=== PATIENT | female | born 1945 | race Caucasian/White ===

== ENCOUNTER 2019-01-01 08:58 | Inpatient (IN) | payer MEDICARE, BC ==
[2019-01-01 09:33] LABS: #Basophils 0.1 thou/uL (0.0-0.2); #Eosinphils 0.1 thou/uL (0.0-0.7); #Lymphocytes 1.4 thou/uL (1.20-3.40); #Monocytes 0.5 thou/uL (0.11-0.59); #Neutrophils 5.1 thou/uL (1.40-6.50); %Basophils 0.8 % (0.0-1.0); %Eosinophils 1.4 % (0.0-10.0); %Lymphocytes 18.9 % (21.0-51.0); %Monocytes 7.3 % (0.0-10.0); %Neutrophils 71.6 % (42.0-75.0); Mean Corpuscular Hemoglobin 30.6 pg (27.0-31.0); Mean Corpuscular Volume 92.7 fL (78.0-98.0); Mean Platelet Volume 9.4 fL (7.4-10.4); Platelet Count 240 thou/uL (130-400); RBC Distribution Width 12.8 % (11.5-14.5); Red Blood Cell (RBC) Count 4.25 mill/uL (4.20-5.40); White Blood Cell (WBC) Count 7.2 thou/uL (4.8-10.8)
[2019-01-01 09:55] LABS: ALT (SGPT) 56 U/L (8-55); AST (SGOT) 41 U/L (5-34); Albumin 4.3 g/dL (3.4-4.8); Alkaline Phosphatase 128 U/L (40-150); Anion Gap 16 mmol/L (10-20); BUN (Urea Nitrogen) 21 mg/dL (9.8-20.1); CK (CPK) 205 U/L (29-168); Calc. Creatinine Clearance 0 mL/min (70-130); Calcium 9.4 mg/dL (7.8-10.44); Carbon Dioxide 22 mmol/L (23-31); Chloride 103 mmol/L (98-107); Estimated GFR-MDRD 52; Globulin 2.9 g/dL (2.4-3.5); Glucose 159 mg/dL (83-110); Potassium 3.7 mmol/L (3.5-5.1); Protein, Total 7.2 g/dL (6.0-8.3); Sodium 137 mmol/L (136-145)
[2019-01-01] MEDS ORDERED: cefTRIAXone\\ROCEPHIN 1 GM VIAL ONE (10:07)
[2019-01-01] MEDS ORDERED: Diltiazem 125 MG in Sodium Chloride 0.9% 100 ML IVPB SCH (10:15)
--- NOTE | 2019-01-01 10:44 | RAD ---
FRONTAL VIEW CHEST: CLINICAL HISTORY: Dyspnea. Short of breath. New onset findings. FINDINGS: Bibasilar opacities are present. There is enlargement of the cardiac silhouette and pulmonary vascul ature. No pneumothorax is seen. IMPRESSION: 1. Evidence of bilateral pleural fluid with adjacent atelectasis and/or pneumonia. 2. Edema with findings of congestive heart failure. Recommend followup to resolution. POS: [facility]
[2019-01-01 11:20] LABS: Bilirubin Negative (Negative); Blood, Urine Negative (Negative); Clarity CLEAR (Clear); Glucose, Urine (Dipstick) Negative (Negative); Leukocyte Negative (Negative); Nitrite Negative (Negative); Protein, Urine (Dipstick) Negative (Neg-Trace); Specific Gravity, Urine 1.006 (1.002-1.036); Urobilinogen 0.2 mg/dL (0.2-1.0); pH, Urine 7.5 (5.0-9.0)
[2019-01-01] MEDS ORDERED: Ondansetron ODT 4 MG TAB SL PRN (12:54)
[2019-01-01] MEDS ORDERED: Ondansetron PF 4 MG/2 ML Vial IVP PRN (12:54)
[2019-01-01] MEDS ORDERED: Acetaminophen 325 MG TAB PO PRN (13:44)
[2019-01-01] MEDS: Furosemide 20 MG/2 ML VIAL SLOW IVP SCH (14:51)
[2019-01-01 14:55] VITALS: BMI 27.2
--- NOTE | 2019-01-01 17:27 | HP ---
PRIMARY CARE PROVIDER: Dr. Talia Pderoza. CHIEF COMPLAINT: Palpitations. HISTORY OF PRESENT ILLNESS: Ms. Tellez is a pleasant 73-year-old lady, who was seen at [facility] on January 01, 2019. She reports that she felt her heart racing about 5 to 7 days ago. She reports that it is intermittent, no known aggravating or relieving factors. She reports that she has a history of PVCs, but otherwise no cardiac history. She reports that she had aching sensation in her chest yesterday. She also reports orthopnea last night. Over the last 2 to 3 days, she had a sensation of fluid in her ear, initially in the left ear, subsequently in the right ear. She denies any fevers or chills. She denies any nausea or vomiting. REVIEW OF SYSTEMS: All other systems reviewed and found to be negative. PAST MEDICAL HISTORY: Hypothyroidism and hypertension. PAST SURGICAL HISTORY: None. SOCIAL HISTORY: The patient reports occasional alcohol use. She denies tobacco use or recreational drug use. FAMILY HISTORY: Coronary artery disease in her mother and atrial fibrillation in her sister. ALLERGIES: PENICILLIN AND TETRACYCLINE. CURRENT MEDICATIONS: 1. Levoxyl 112 mcg daily. 2. Avapro 300 mg daily. CODE STATUS: I discussed her code status. She is full code. PHYSICAL EXAMINATION: GENERAL: On examination, Ms. Tellez is awake and alert, not in acute distress. VITAL SIGNS: Blood pressure is 120/95, pulse 110, respiratory rate 18, and oxygen saturation 92% on room air. She is afebrile. EYES: No scleral icterus. No conjunctival pallor. ENT: Moist mucosal membranes. No oropharyngeal erythema or exudates. NECK: Supple and nontender. Trachea is midline. She has jugular venous distention. RESPIRATORY: Accessory muscles of breathing are not active. Chest wall movements are symmetric bilaterally. Lung examination reveals bibasilar crackles. CARDIOVASCULAR: S1 and S2 are heard, tachycardic and irregular. Peripheral pulses palpable. No carotid bruit. No pericardial rub. ABDOMEN: Soft and nontender. Bowel sounds heard. NEUROLOGIC: Cranial nerves 2 through 12 intact. Deep tendon reflexes 2+. MUSCULOSKELETAL: Power is 5/5 in all 4 extremities. No lower extremity edema. SKIN: No rashes or subcutaneous nodules. LYMPHATIC: No cervical lymphadenopathy. PSYCHIATRIC: Normal mood and normal affect. The patient is oriented to person, place, and time. LABORATORY DATA: Ms. Tellez labs and investigations were reviewed. I reviewed her electrocardiogram, which shows atrial fibrillation with rapid ventricular response, no ST changes to suggest an acute coronary syndrome. I also reviewed her chest x-ray, which shows pleural effusions with adjacent atelectasis and pulmonary vasculature enlargement. Laboratory investigation show an unremarkable CBC, normal sodium, normal potassium, normal creatinine, elevated blood urea nitrogen of 21, normal lactic acid, elevated AST of 41, elevated ALT of 56, elevated CK of 205, elevated BNP of 826.2, and normal troponin I. TSH is normal. Urinalysis is unremarkable. ASSESSMENT AND PLAN: Ms. Tellez is a pleasant 73-year-old lady, who was seen at [facility] on January 10, 2019. Her problem list includes: 1. Atrial fibrillation with rapid ventricular response: Ms. Tellez is presenting with atrial fibrillation with rapid ventricular response. TSH is normal. She has been started on a Cardizem drip. She will be admitted to the hospital. 2D echocardiogram and Cardiology Service consultation are being requested for new onset atrial fibrillation with rapid ventricular response. 2. Congestive heart failure: She appears to have new onset congestive heart failure. We will start her on furosemide. We will check 2D echocardiogram. Further management depending on outcome of 2D echocardiogram. 3. Hypertension: We will resume home medications, monitor vital signs and titrate antihypertensives as needed. 4. Hypothyroidism: TSH is normal, continue levothyroxine. Please note that there was some concern for infection on chest x-ray report. However, the patient is afebrile. She denies any cough or sputum production. She has normal white count. She did receive a dose of ceftriaxone in the emergency room. I am holding off on further antibiotics until it is clear that there is in fact an underlying infection. Many thanks for allowing me to participate in your patient's care. Please feel free to contact me with any questions or concerns. LEVEL OF RISK: High. LEVEL OF COMPLEXITY: High. Job ID: [id number]
[2019-01-01] MEDS: Diltiazem 125 MG in Sodium Chloride 0.9% 100 ML IVPB SCH (19:02)
[2019-01-02] MEDS: Furosemide 20 MG/2 ML VIAL SLOW IVP SCH ×2 (05:16→15:32)
[2019-01-02 05:19] LABS: #Basophils 0.1 thou/uL (0.0-0.2); #Eosinphils 0.2 thou/uL (0.0-0.7); #Monocytes 0.7 thou/uL (0.11-0.59); %Basophils 1.1 % (0.0-1.0); %Eosinophils 3.6 % (0.0-10.0); %Lymphocytes 33.2 % (21.0-51.0); %Monocytes 11.3 % (0.0-10.0); %Neutrophils 50.9 % (42.0-75.0); Hemoglobin 12.1 g/dL (12.0-16.0); Mean Corpuscular HGB CONC 33.1 g/dL (32.0-36.0); Mean Corpuscular Hemoglobin 30.7 pg (27.0-31.0); Mean Corpuscular Volume 92.6 fL (78.0-98.0); Mean Platelet Volume 9.2 fL (7.4-10.4); Platelet Count 223 thou/uL (130-400); RBC Distribution Width 12.6 % (11.5-14.5); Red Blood Cell (RBC) Count 3.96 mill/uL (4.20-5.40)
[2019-01-02] MEDS: Diltiazem 125 MG in Sodium Chloride 0.9% 100 ML IVPB SCH ×2 (05:19→13:36)
[2019-01-02 05:34] LABS: Anion Gap 14 mmol/L (10-20); BUN (Urea Nitrogen) 19 mg/dL (9.8-20.1); Calc. Creatinine Clearance 78 mL/min (70-130); Calcium 8.8 mg/dL (7.8-10.44); Carbon Dioxide 22 mmol/L (23-31); Chloride 106 mmol/L (98-107); Estimated GFR-MDRD 60; Glucose 103 mg/dL (83-110); Potassium 3.6 mmol/L (3.5-5.1); Sodium 138 mmol/L (136-145)
[2019-01-02] MEDS ORDERED: Levothyroxine Sodium 112 MCG TAB PO SCH (06:00)
[2019-01-02] MEDS ORDERED: Apixaban 5 MG TAB PO SCH (11:30)
[2019-01-02] MEDS ORDERED: Dronedarone HCl 400 MG TAB PO SCH (11:30)
[2019-01-02 12:27] LABS: Cardiac Risk 2.5 (Less than 4.5)
--- NOTE | 2019-01-02 13:40 | PRG ---
DATE OF SERVICE: 01/02/2019 CHIEF COMPLAINT: Palpitations and shortness of breath. HISTORY OF PRESENT ILLNESS: This is a 73-year-old female with history of hypertension and hypothyroidism, who presented to the emergency department for intermittent shortness of breath and palpitations. She was found to have atrial fibrillation with rapid ventricular response in the emergency department. SUBJECTIVE: The patient is seen and evaluated at bedside. She refers no shortness of breath and palpitations disappeared. Per nurse, the patient is still on diltiazem drip, in atrial fibrillation, but now better rate control. No other acute events. REVIEW OF SYSTEMS: All systems are reviewed and negative except for the ones mentioned above. PHYSICAL EXAMINATION: VITAL SIGNS: Blood pressure 129/79, pulse 94 and irregular, respirations 18, and O2 saturation 96% on room air. GENERAL: No distress. Awake, alert, and oriented x3. HEAD AND NECK: Pupils are equal and reactive to light. Extraocular muscles are intact. Mucous membranes are moist. Neck is supple. CARDIOVASCULAR: Irregular rhythm with rate control. No murmurs, rubs, or gallops. PULMONARY: Clear to auscultation bilaterally. No wheezes, rhonchi, or crackles. ABDOMEN: Soft, nontender, nondistended. Positive bowel sounds. EXTREMITIES: No palpable edema. Pulses are symmetric. Range of motion is intact. SKIN: Fair skin. No breakdown. NEUROLOGIC: Cranial nerves 2 through 12 are grossly intact. Deep tendon reflexes are normoreflexic. Muscle tone is normal. CURRENT MEDICATIONS: Reviewed. LABORATORY DATA: Laboratory abnormalities; CBC and BMP normal. TSH is normal. BNP from yesterday is reviewed and slightly elevated. Lipid profile is normal. Imaging studies, Reviewed. EKG reviewed. ASSESSMENT AND PLAN: 1. Atrial fibrillation with rapid ventricular response: Currently rate controlled on IV diltiazem. Cardiology consulted. The patient initiated on Multaq and Eliquis. Symptoms had resolved. Continue to monitor closely. 2. Acute diastolic heart failure secondary to tachyarrhythmia: Symptoms resolved. Continue rate control and diuretics. 3. Acute pulmonary edema secondary to acute diastolic heart failure secondary to tachyarrhythmia: See above. 4. Essential hypertension: Currently at goal. 5. Hypothyroidism: Continue current medication. CODE STATUS: Full code. CORE MEASURE: Eliquis. DISPOSITION: Telemetry. PROGNOSIS: Guarded. CLINICAL STATUS: Guarded. EXPECTED DISCHARGE: To be determined. TOTAL TIME SPENT: 32 minutes. Job ID: [id number]
--- NOTE | 2019-01-02 13:48 | CON ---
DATE OF CONSULTATION: HISTORY: Anastacia Tellez is a pleasant 73-year-old white female without any previous cardiac problems, except PVCs. She started to notice her heart beating very rapidly 5 or 6 days ago. She denied any chest discomfort. She did have some mild dyspnea on exertion and 1 day ago noted some ankle edema. She denies any cough, fever, or chills. PAST MEDICAL HISTORY: Hypertension and hypothyroidism. PAST SURGICAL HISTORY: None. MEDICATIONS: 1. Avapro 300 mg daily. 2. Levothyroxine 112 mcg daily. ALLERGIES: PENICILLIN AND TETRACYCLINE. SOCIAL HISTORY: She does not smoke. She drinks wine occasionally, although has not had any for 2 or 3 weeks. FAMILY HISTORY: Mother had coronary artery disease. Sister has atrial fibrillation. REVIEW OF SYSTEMS: Twelve-point review of systems is otherwise unremarkable. PHYSICAL EXAMINATION: VITAL SIGNS: Blood pressure of 143/92, pulse of 98, still in atrial fibrillation. HEENT: PERRL. NECK: Supple. CHEST: Clear. CARDIAC: S1 and S2 are normal without any S3, S4, or murmurs. ABDOMEN: Normal bowel sounds without tenderness or organomegaly. EXTREMITIES: Revealed no clubbing, cyanosis, or edema. NEUROLOGIC: Grossly intact. SKIN: Warm and dry. IMAGING STUDIES: EKG revealed atrial fibrillation with rapid ventricular response of 152 per minute with septal infarction. Echocardiogram revealed a left pleural effusion, ejection fraction of 55% to 60% , left atrial enlargement, moderate mitral regurgitation, and mild to moderate tricuspid regurgitation. LABORATORY DATA: Hemoglobin 12.1, hematocrit 36.7, white count 6000, platelets 223,000. Sodium 138, potassium 3.6, chloride 106, carbon dioxide 22, BUN 19, creatinine 0.92. TSH is normal. BNP 826.2. Troponin I is normal. IMPRESSION: 1. New onset atrial fibrillation with fast ventricular response, probably has been present for 5 or 6 days. 2. Probably some degree of diastolic dysfunction with elevated BNP. 3. Hypertension. 4. Hypothyroidism. 5. Unknown cholesterol status. PLAN: Fasting lipid profile will be obtained. I discussed various options with Ms. Tellez. Overall, it was recommended that she be anticoagulated since she has had this for at least 4-5 days, and she will be started on Eliquis 5 mg b.i.d. Also , she will be started on Multaq, and in 2-3 days undergo transesophageal evaluation and electrical cardioversion. Risks of electrical cardioversion were discussed including , worst heart rhythm, embolic event including stroke, etc. She understands and agrees to proceed. She will be maintained on the intravenous Cardizem for rate control at the present time. Job ID: [id number] [facility]TD[facility]
[2019-01-02 15:08] LABS: Hemoglobin 12.7 g/dL (12.0-16.0); Platelet Count 236 thou/uL (130-400)
[2019-01-02] MEDS: Dronedarone HCl 400 MG TAB PO SCH (19:14)
[2019-01-02] MEDS: Apixaban 5 MG TAB PO SCH (21:40)
[2019-01-03] MEDS: LEVOTHYROXINE 112 MCG PO SCH (05:35)
[2019-01-03] MEDS: Furosemide 20 MG/2 ML VIAL SLOW IVP SCH (05:35)
[2019-01-03] MEDS: Diltiazem 125 MG in Sodium Chloride 0.9% 100 ML IVPB SCH ×2 (06:17→09:30)
[2019-01-03 07:32] LABS: Hemoglobin 12.3 g/dL (12.0-16.0); Mean Corpuscular HGB CONC 33.4 g/dL (32.0-36.0); Mean Corpuscular Hemoglobin 30.4 pg (27.0-31.0); Platelet Count 245 thou/uL (130-400); RBC Distribution Width 12.5 % (11.5-14.5); Red Blood Cell (RBC) Count 4.05 mill/uL (4.20-5.40); White Blood Cell (WBC) Count 6.2 thou/uL (4.8-10.8)
[2019-01-03 07:48] LABS: Anion Gap 10 mmol/L (10-20); BUN (Urea Nitrogen) 16 mg/dL (9.8-20.1); Calc. Creatinine Clearance 72 mL/min (70-130); Calcium 9.2 mg/dL (7.8-10.44); Carbon Dioxide 28 mmol/L (23-31); Chloride 104 mmol/L (98-107); Estimated GFR-MDRD 56; Glucose 101 mg/dL (83-110); Magnesium 2.1 mg/dL (1.6-2.6); Potassium 3.2 mmol/L (3.5-5.1); Sodium 139 mmol/L (136-145)
[2019-01-03] MEDS: Apixaban 5 MG TAB PO SCH ×2 (08:45→20:16)
[2019-01-03] MEDS: Dronedarone HCl 400 MG TAB PO SCH ×2 (08:46→16:54)
[2019-01-03] MEDS: IRBESARTAN PO SCH (08:51)
[2019-01-03] MEDS: Potassium Chloride 20 MEQ in Premix Bag 1 BAG IVPB SCH ×2 (08:52→19:06)
[2019-01-03] MEDS: Furosemide 20 MG TAB PO SCH ×2 (08:58→14:41)
[2019-01-03] MEDS ORDERED: Diltiazem 125 MG in Sodium Chloride 0.9% 100 ML IVPB SCH (10:32)
--- NOTE | 2019-01-03 13:41 | PDOC.PN ---
- Subjective Encounter Start Date: 01/03/19 Encounter Start Time: 07:30 CHIEF COMPLAINT: Palpitations and shortness of breath. HISTORY OF PRESENT ILLNESS: This is a 73-year-old female with history of hypertension and hypothyroidism, who presented to the emergency department for intermittent shortness of breath and palpitations. She was found to have atrial fibrillation with rapid ventricular response in the emergency department. SUBJECTIVE: The patient is seen and evaluated at bedside. She has no acute complaints. Per nurse, afib resolved on telemetry. Hypokalemia. No other acute events REVIEW OF SYSTEMS: All systems are reviewed and negative except for the ones mentioned above. - Objective Resuscitation Status - Order Detail: 01/01/19 13:44 Resuscitation Status Routine Resuscitation Status: FULL: Full Resuscitation Discussed with: patient MAR Reviewed: Yes Vital Signs & Weight: Vital Signs (12 hours) Temp Pulse Pulse Pulse Resp BP BP 01/03/19 11:51 97.9 F 77 18 01/03/19 09:16 90 80 144/66 H 128/62 01/03/19 07:47 98.2 F 75 16 01/03/19 05:31 01/03/19 04:00 98.0 F 80 20 BP Pulse Ox 01/03/19 11:51 139/68 01/03/19 09:16 01/03/19 07:47 144/77 H 96 01/03/19 05:31 94 L 01/03/19 04:00 133/74 94 L Weight Weight 192 lb I&O: 01/02/19 01/03/19 01/04/19 06:59 06:59 06:59 Intake Total 630 1470 Output Total 1100 3250 Balance -470 -1780 Result Diagrams: 01/03/19 06:53 01/03/19 06:53 Radiology Reviewed by me: Yes EKG Reviewed by me: Yes Phys Exam - Physical Examination Constitutional: NAD HEENT: PERRLA, moist MMs, oral pharynx no lesions Neck: no nodes, no JVD, supple, full ROM Respiratory: no wheezing, no rales, no rhonchi, clear to auscultation bilateral Cardiovascular: RRR, no significant murmur, no rub Gastrointestinal: soft, non-tender, no distention, positive bowel sounds Musculoskeletal: no edema, pulses present Neurological: non-focal, normal sensation, moves all 4 limbs Psychiatric: normal affect, A&O x 3 Skin: no rash, normal turgor, cap refill <2 seconds Dx/Plan (1) Atrial fibrillation with rapid ventricular response Code(s): I48.91 - UNSPECIFIED ATRIAL FIBRILLATION Status: Acute Plan: Resolved. Still on diltiazem IV and loading Multaq. Cardiology follows. Resolved (2) Acute diastolic heart failure Code(s): I50.31 - ACUTE DIASTOLIC (CONGESTIVE) HEART FAILURE Status: Acute Plan: Resolved. Change to oral lasix (3) Pulmonary edema cardiac cause Code(s): I50.1 - LEFT VENTRICULAR FAILURE, UNSPECIFIED Status: Acute Plan: Resolved. Secondary to tachyarrhythmia (4) Essential hypertension Code(s): I10 - ESSENTIAL (PRIMARY) HYPERTENSION Status: Chronic Plan: at goal (5) Hypothyroid Code(s): E03.9 - HYPOTHYROIDISM, UNSPECIFIED Status: Chronic (6) Hypokalemia Code(s): E87.6 - HYPOKALEMIA Status: Acute Plan: Replace and monitor - Plan cont current plan of care CODE; FULL CORE; ELIQUIS DISP; TELE PROG; FAIR CLINICAL STATUS; GUARDED EXPECTED DISCHARGE; IN THE NEXT 48 HOURS TOTAL TIME SPENT; 25 MINUTES DATE OF SERVICE; 01/03/2019
[2019-01-03] MEDS ORDERED: Potassium Chloride 20 MEQ in Premix Bag 1 BAG IVPB SCH (18:45)
[2019-01-04] MEDS: LEVOTHYROXINE 112 MCG PO SCH (04:58)
[2019-01-04 05:11] LABS: Anion Gap 13 mmol/L (10-20); BUN (Urea Nitrogen) 19 mg/dL (9.8-20.1); Calc. Creatinine Clearance 68 mL/min (70-130); Calcium 9.1 mg/dL (7.8-10.44); Carbon Dioxide 24 mmol/L (23-31); Chloride 107 mmol/L (98-107); Estimated GFR-MDRD 53; Glucose 95 mg/dL (83-110); Potassium 3.7 mmol/L (3.5-5.1); Sodium 140 mmol/L (136-145)
[2019-01-04] MEDS: Furosemide 20 MG TAB PO SCH ×2 (08:37→13:34)
[2019-01-04] MEDS: Dronedarone HCl 400 MG TAB PO SCH (08:38)
[2019-01-04] MEDS: Apixaban 5 MG TAB PO SCH (08:38)
[2019-01-04] MEDS: IRBESARTAN PO SCH (08:40)
[2019-01-04 12:10] VITALS: BP 134/93; TEMP 97.8
--- NOTE | 2019-01-05 03:56 | DIS ---
DATE OF ADMISSION: 01/01/2019 DATE OF DISCHARGE: 01/04/2019 ADMITTING PHYSICIAN: Dr. Mckeon. DISCHARGING PHYSICIAN: Dr. Mitchell. PRIMARY CARE PHYSICIAN: Dr. Talia Pedroza. ADMITTING DIAGNOSES: 1. Atrial fibrillation with rapid ventricular response. 2. Congestive heart failure. 3. Hypertension. 4. Hypothyroidism. DISCHARGE DIAGNOSES: 1. Atrial fibrillation with rapid ventricular response, resolved. 2. Acute diastolic heart failure: Resolved. 3. Pulmonary edema secondary to atrial fibrillation and acute diastolic heart failure: Resolved. 4. Essential hypertension. 5. Hypothyroidism. 6. Hypokalemia, resolved. CONSULT: Cardiology. PROCEDURES: None. SPECIAL IMAGING: Echocardiogram. HOSPITAL COURSE: This is a 73-year-old female with history of hypertension and hypothyroidism, who came for palpitations and shortness of breath. She was admitted with diagnoses as above. She was initiated on diltiazem drip. Cardiology was consulted. She was also initiated on Multaq and in about 30 hours, atrial fibrillation rhythm changed to normal sinus rhythm. Diltiazem was discontinued. The patient was initiated on Eliquis for primary stroke prevention and she did well overnight. She had some electrolyte abnormalities that were corrected. She is now stable for discharge. PHYSICAL EXAMINATION: VITAL SIGNS: Blood pressure 158/82, pulse 83, respirations 16, oxygen saturation 94% on room air, temperature 97.6 Fahrenheit. GENERAL: She appears in no distress. Awake, alert, oriented x3. HEAD AND NECK: Pupils are equal, reactive to light. Extraocular muscles are intact. Mucous membranes are moist. Neck is supple. No JVD. CARDIOVASCULAR: Rhythm and rate are regular. No audible murmurs, rubs, or gallops. PULMONARY: Clear to auscultation bilaterally. No wheezes, rhonchi, or crackles. ABDOMEN: Soft, nontender, nondistended, positive bowel sounds. EXTREMITIES: No palpable edema. Pulses are symmetric and range of motion is intact. SKIN: Normal moist and color. NEUROLOGIC: Cranial nerves 2 through 12 are grossly intact. Deep tendon reflexes are normoreflexic. LABORATORY ABNORMALITIES: Chemistry normal. CBC normal. DISCHARGE DISPOSITION: Home with self care. DISCHARGE CONDITION: Stable. DISCHARGE DIET: Cardiac diet as tolerated. DISCHARGE ACTIVITY: Increase activity as tolerated. Avoid falls. DISCHARGE MEDICATIONS: See medical reconciliation for details. DISCHARGE FOLLOWUP: With Cardiology in one month, with primary care physician in one week. DISCHARGE INSTRUCTIONS: The patient was instructed to return to the emergency department if symptoms worsen. Take her medications as directed and not to miss any appointments. TIME OF DISCHARGE AND PLANNIN minutes. Job ID: [id number]
== END 2019-01-04 14:05 | disposition home or self-care (01) | DRG 308 ==
LOC: ERS 08:58 → 2NO 12:44
PROVIDERS: ADMIT Internal Medicine; ATTEND Internal Medicine
DX: I48.91 Unspecified atrial fibrillation (principal); I50.31 Acute diastolic (congestive) heart failure; I11.0 Hypertensive heart disease with heart failure; E03.9 Hypothyroidism, unspecified; E87.6 Hypokalemia; Z79.899 Other long term (current) drug therapy; Z88.0 Allergy status to penicillin; Z88.1 Allergy status to other antibiotic agents
CPT/HCPCS: 36415; 71045; 80048; 80053; 80061; 81003; 82550; 83605; 83735; 83880; 84443; 84484; 85025; 85027; 87040; 93005; 93306; 93798; 94760; 96365; 96367; 96376; J0696; J1940; J3480; J3490

== ENCOUNTER → 2020-09-13 | Day surgery (SDC) | payer MEDICARE, BC ==
[2020-09-12 10:43] VITALS: BMI 27.2
[~2020-09-13] MED LIST: PROPOFOL 20 ML ONE
--- NOTE | 2020-09-16 22:36 | EKG ---
Test Reason : POST CARDIOVERSION Blood Pressure : / mmHG Vent. Rate : 106 BPM Atrial Rate : 340 BPM P-R Int : 000 ms QRS Dur : 076 ms QT Int : 366 ms P-R-T Axes : 000 088 094 degrees QTc Int : 486 ms Atrial fibrillation with rapid ventricular response with premature ventricular or aberrantly conducte d complexes Periods of atrial flutter Abnormal ECG No previous ECGs available Confirmed by Alda NAVARRO ([id number]) on 09/16/2020 10:35:52 PM Referred By: FUNMI Confirmed By:Alda NAVARRO
--- NOTE | 2020-09-25 11:35 | CCLSPC ---
PROCEDURE: Electrocardioversion. INDICATION: Atrial fibrillation. The patient was sedated by Anesthesia and with 200 joules and 300 joules with the pads, she would convert to sinus rhythm for 10 to 15 seconds and then go back to atrial fibrillation. The paddles were used with significant force applied with 300 joules and again had the same result - return to sinus rhythm for 10 to 15 seconds and then would go back to atrial fibrillation. Once she had awakened, we discussed potential options. 1. Load with another medication and repeat cardioversion in the future. 2. Rate control and anticoagulation alone. 3. Ablation. Overall, it is felt for the present time, our best option will be rate control. Her creatinine has increased to 1.74, where it has been normal in the past. Therefore, we will have her reduce irbesartan from 300 mg to 150 mg daily. She will add metoprolol 50 mg b.i.d. Also, she was instructed to discontinue the Multaq. She will be seen in 2 weeks for followup. Also, arrangements will be made for her to be seen by Electrophysiology for consideration of radiofrequency ablation of her atrial fibrillation. Job ID: [id number] [facility]
== END ==
LOC: CCL 09:32
PROVIDERS: ATTEND Internal Medicine Cardiovascular Disease
PROC: 5A2204Z Restoration of Cardiac Rhythm, Single (ICD-10-PCS; principal; 2020-09-13)
DX: I48.0 Paroxysmal atrial fibrillation (principal); I49.5 Sick sinus syndrome; I11.0 Hypertensive heart disease with heart failure; I50.32 Chronic diastolic (congestive) heart failure; I34.0 Nonrheumatic mitral (valve) insufficiency; E03.9 Hypothyroidism, unspecified; Z79.01 Long term (current) use of anticoagulants; Z79.899 Other long term (current) drug therapy; Z88.0 Allergy status to penicillin; Z88.1 Allergy status to other antibiotic agents; Z88.8 Allergy status to other drugs, medicaments and biological substances
CPT/HCPCS: 92960; 93005; 93010; J2704

== ENCOUNTER 2020-09-25 13:16 | Outpatient (CLI) | payer MEDICARE, BC ==
--- NOTE | 2020-09-25 13:44 | RAD ---
EXAM: Chest PA and lateral: HISTORY: Shortness of breath, x4 weeks. COMPARISON: 01/01/2019 FINDINGS: Heart: Obscuration left right heart border due to bilateral pleural effusions. Nevertheless, there do es appear to be cardiomegaly Aorta: Atherosclerotic Pulmonary vessels: Normal Costophrenic angles: Bilateral pleural effusions Lungs: Bibasilar parenchymal changes. Pneumothorax: No pneumothorax Osseous structures: No osseous abnormalities IMPRESSION: Bibasilar pleural-parenchymal changes. Correlate for congestive heart failure.
== END 2020-09-25 13:17 | disposition home or self-care (01) ==
LOC: BICRAD 13:16
PROVIDERS: ATTEND Internal Medicine Cardiovascular Disease
DX: I48.91 Unspecified atrial fibrillation (principal); J98.4 Other disorders of lung
CPT/HCPCS: 71046

== ENCOUNTER 2020-09-27 08:36 | Inpatient (IN) | payer MEDICARE, BC ==
[2020-09-27 09:30] LABS: #Basophils 0.1 thou/uL (0.0-0.2); #Eosinphils 0.1 thou/uL (0.0-0.7); #Lymphocytes 2.3 thou/uL (1.20-3.40); #Monocytes 0.8 thou/uL (0.11-0.59); #Neutrophils 5.5 thou/uL (1.40-6.50); %Basophils 0.9 % (0.0-1.0); %Eosinophils 0.8 % (0.0-10.0); %Lymphocytes 26.1 % (21.0-51.0); %Monocytes 9.3 % (0.0-10.0); Hemoglobin 14.2 g/dL (12.0-16.0); Mean Corpuscular HGB CONC 32.7 g/dL (32.0-36.0); Mean Corpuscular Hemoglobin 30.3 pg (27.0-31.0); Mean Corpuscular Volume 92.5 fL (78.0-98.0); Mean Platelet Volume 9.4 fL (7.4-10.4); Platelet Count 275 thou/uL (130-400); RBC Distribution Width 12.6 % (11.5-14.5); Red Blood Cell (RBC) Count 4.68 mill/uL (4.20-5.40); White Blood Cell (WBC) Count 8.7 thou/uL (4.8-10.8)
[2020-09-27 09:50] LABS: ALT (SGPT) 126 U/L (8-55); AST (SGOT) 72 U/L (5-34); Albumin 4.1 g/dL (3.4-4.8); Alkaline Phosphatase 126 U/L (40-110); Anion Gap 16 mmol/L (10-20); BUN (Urea Nitrogen) 37 mg/dL (9.8-20.1); Bilirubin, Total 1.5 mg/dL (0.2-1.2); CK (CPK) 197 U/L (29-168); Calc. Creatinine Clearance 0 mL/min (70-130); Calcium 9.3 mg/dL (7.8-10.44); Carbon Dioxide 27 mmol/L (23-31); Chloride 101 mmol/L (98-107); Digoxin Less than 0.15 ng/mL (0.8-2.0); Globulin 2.3 g/dL (2.4-3.5); Glucose 127 mg/dL (83-110); Potassium 4.6 mmol/L (3.5-5.1); Protein, Total 6.4 g/dL (6.0-8.3); Sodium 139 mmol/L (136-145)
[2020-09-27] MEDS ORDERED: Diltiazem HCl 125 MG, Admixture Fee 1 EACH in Sodium Chloride 0.9% 100 ML IVPB SCH (10:15)
--- NOTE | 2020-09-27 10:23 | RAD ---
PORTABLE CHEST 1 VIEW: Date: 09/27/2020 Time: 0921 hours HISTORY: Difficulty breathing. Negative COVID test on 09/13/2020. COMPARISON: 09/25/2020. FINDINGS/IMPRESSION: The heart is enlarged. Bilateral pleural effusions are again seen, right larger than left, with adjac ent atelectatic changes/infiltrates. No pneumothoraces are seen. POS: [facility]
--- NOTE | 2020-09-27 11:56 | ULT ---
Exam: Right upper quadrant ultrasound: HISTORY: Difficulty breathing and elevated liver function tests. Right upper quadrant pain. COMPARISON: None FINDINGS: Liver: Within normal limits Gallbladder: There is a nonmobile echogenic area seen in the midportion of the gallbladder measuring 1.4 cm which could be related to adherent sludge. There is a smaller nonmobile echogenic focus along the nondependent portion of the body of the gallbladder measuring 3 mm. This probably represent s a small gallbladder polyp. There is suggestion of mild gallbladder wall thickening/edema with gallbladder wall measuring 0.6 cm in thickness. In addition, there is question of trace pericholecyst ic fluid. Findings could be related to cholecystitis in the correct clinical scenario, but the retort or condenser press operator does note a negative sonographic Schulz's sign. Common bile duct: The common duct is normal in caliber measuring 0.3 cm in diameter. Pancreas: Limited visualized portions of the pancreas demonstrate a normal sonographic appearance. Right kidney: A small hypoechoic areas seen in the midportion right kidney, color-flow evaluation dem onstrates flow in this region this may represent a prominent vessel. There is no evidence of hydronephrosis. The right kidney measures 10.4 cm in length. IVC: The visualized IVC demonstrates a normal sonographic appearance. There is at least a moderate-sized right pleural effusion visualized. IMPRESSION: 1. Nonmobile 1.4 cm echogenic structure midportion gallbladder which could be related to adherent slu dge. There also appears to be a small subcentimeter gallbladder polyp along the anterior wall of the gallbladder. There is mild gallbladder wall thickening/gallbladder edema. There is questionable t race area of pericholecystic fluid. Although a negative sonographic Schulz's sign is elicited, cholecystitis in the correct clinical scenario is a possibility. Gallbladder wall thickening can be s een with hypoproteinemia or liver disease versus other etiologies as well. Hepatobiliary study may be helpful for further evaluation. If the patient does not have signs or symptoms of cholecystitis, f ollow-up gallbladder ultrasound is recommended in 4 weeks to ensure resolution of the nonmobile echogenic structure in the gallbladder lumen. 2. Common duct normal in caliber. 3. Moderate right pleural effusion.
[2020-09-27] MEDS ORDERED: Furosemide 100 MG/10 ML VIAL ONE (12:22)
[2020-09-27] MEDS ORDERED: Senokot S 8.6-50 MG TAB PO PRN (12:35)
[2020-09-27] MEDS ORDERED: Bisacodyl 5 MG TAB PO PRN (12:35)
[2020-09-27] MEDS ORDERED: Acetaminophen 325 MG TAB PO PRN (12:35)
[2020-09-27 13:39] LABS: Troponin I Less than 0.010 ng/mL (< 0.028)
[2020-09-27] MEDS ORDERED: Furosemide 20 MG/2 ML VIAL SLOW IVP SCH ×2 (14:00→15:00)
--- NOTE | 2020-09-27 15:41 | HP ---
CHIEF COMPLAINT: Weight gain, orthopnea, and lower extremity edema. HISTORY OF PRESENT ILLNESS: A 74-year-old female with a history of atrial fibrillation and recent cardioversion and diastolic dysfunction with the EF of 55% in August 2019, presenting with the weight gain of 5 pounds of one week duration. The patient is taking Lasix at home, however, she felt that it is not helping much. She had shortness of breath and weight gain including in her stomach area. She has to sit up in the nighttime at least 5 hours before she can lie down again. She can hear her gurgling sound. The patient has no history of AL. She was cardioverted on September 26 and her medications were changed. The Multaq has been discontinued and Lopressor started 50 mg twice a day. Also, irbesartan changed to 150 mg daily. She follows with Dr. Goldman and Dr. Rucker. The patient also has a history of hypothyroidism two weeks ago. Her primary care checked a TSH, free T4, and it seems out of normal range, so her Levoxyl thyroxine supplement increased to 125 from 112 mcg. The patient also has elevated LFT, but she does not drink. She has no abdominal complaints. She is afebrile and normal white count. Her BNP was 2464 in the initially evaluation. REVIEW OF SYSTEMS: 13-point review of systems reviewed with the patient. Other than weight gain, orthopnea, PND, lower extremity edema, she did not have any harjeet chest pain or productive cough. No hemoptysis, hematemesis, nausea, vomiting, diarrhea, hematuria, hematochezia, or dysuria. Denies headache, blurriness, tingling, numbness in her extremities. No rash. Rest of review of the systems are negative. ALLERGIES: SHE IS ALLERGIC TO AMLODIPINE, PENICILLIN, TETRACYCLINE. PAST MEDICAL HISTORY: 1. Atrial fibrillation. 2. Diastolic heart failure. 3. Pulmonary edema. 4. Hypertension. 5. Hypothyroidism. HOME MEDICATIONS: 1. Again, she has been discontinued just few days ago from Multaq, and Lopressor 50 b.i.d. has added. Levoxyl has been increased to 125. Irbesartan (Avapro) decreased from 300 to 150 mg. 2. Eliquis 5 mg twice a day. SOCIAL HISTORY: The patient does not smoke or drink alcohol. FAMILY HISTORY: Noncontributory. PHYSICAL EXAMINATION: VITAL SIGNS: Her heart rate is still in the monitor about 114. She is normotensive. Saturating 95% with room air. She is having a mask. GENERAL: She is alert and oriented x4. Nontoxic appearing. HEENT: Pupils are equal, round, and reactive to light. Anicteric. Mucous membranes moist. CARDIOVASCULAR: Irregular rhythm, tachycardia. No murmurs appreciated. LUNGS: With fine crackles in all lung zones appreciated. Moderate air entry. ABDOMEN: Protuberant, but it is soft and it is not tender. No tenderness in the right upper quadrant. EXTREMITIES: Lower extremity, she is very taut with skin. She has about 2+ pitting edema. NEUROLOGIC: No focal deficits. PSYCHIATRIC: Appropriate mood and affect. LABORATORY DATA: BNP 2464.8. Creatinine 1.6. AST 72, ALT 126, alkaline phosphatase 126. Troponin x2 negative. Abdominal ultrasound done to follow up on her elevated LFT shows common bile duct, moderate right pleural effusion, mild gallbladder wall thickening, pericholecystic fluid questionable. IMPRESSION AND PLAN: This is a 74-year-old female with a history of atrial fibrillation, presenting with; 1. Atrial fibrillation with RVR. 2. Acute on chronic CHF exacerbation causing about 5-pound weight gain in the last week despite being on Lasix. 3. Recent attempt of cardioversion by Dr. Goldman. 4. Elevated transaminases, probably reflective of portal congestion. Clinically, she is not presenting with acute cholecystitis. 5. Hypothyroidism. 6. The patient will be admitted in the tele floor. IV diuresis and strict input and output, weight daily. 7. She was recently increased in her dose of thyroxine supplement due to abnormality in the labs at the primary care physician office. We will check a TSH again and hopefully it will be in the normal range. If TSH is low that could be another contributing factor for her atrial fibrillation with RVR due to drug induced hyperthyroidism. Again, the dose has increased two weeks ago. We will follow up on that. 8. Last echo done in 2019 showed EF of 55%. We will repeat the echo as well. 9. We will consult Dr. Goldman's group for further recommendation. I have discontinued her Multaq in her home regimen and started her on Lopressor 50 b.i.d. along with Eliquis for DVT prophylaxis. 10. Full code. Job ID: [id number] [facility]
[2020-09-27 17:00] LABS: Troponin I Less than 0.010 ng/mL (< 0.028)
[2020-09-27] MEDS ORDERED: Dronedarone HCl 400 MG TAB PO SCH (17:00)
--- NOTE | 2020-09-27 17:12 | CON ---
DATE OF CONSULTATION: 09/27/2020 REASON FOR CONSULTATION: Heart failure. PRIMARY FIXTURE DESIGNER: Miguel Goldman. HISTORY OF PRESENT ILLNESS: Ms. Tellez is a very pleasant 74-year-old white female, who comes to the hospital for worsening shortness of breath. She was recently diagnosed with atrial fibrillation and has been on Multaq and Eliquis for stroke prophylaxis. She underwent cardioversion just 2 days ago and she was unable to maintain sinus rhythm, so the choice was made to do rate control and her Multaq was stopped and she had her Lopressor increased. She had been rate controlled and actually saw Dr. Goldman who noticed her swelling was worsening and she was a little more symptomatic from a heart failure standpoint, so he increased her Lasix. This happened yesterday. Today, her shortness of breath got worse. Her edema was also worsening. She could not lay flat without getting suffocated. She had to sit up to sleep any, so she decided to come in for further evaluation and care. Dr. Rucker also evaluated the patient just two days ago and offered her an ablation as an outpatient, which was scheduled to be done in the next month or two waiting on the COVID pandemic to make some space for more outpatient procedures. On my evaluation, Ms. Tellez is still short of breath. She is just getting a first dose of IV Lasix. She is having to sit up about almost 90 degrees to breathe better. PAST MEDICAL HISTORY: 1. Paroxysmal atrial fibrillation, more persistent atrial fibrillation now. 2. Hypertension. 3. Hypothyroidism. 4. PVCs. PAST SURGICAL HISTORY: None. OUTPATIENT MEDICATIONS: Include, 1. Metoprolol succinate 200 mg daily. 2. Lasix 40 mg a day. 3. Levothyroxine 125 mcg a day. 4. Multivitamin daily. 5. Potassium chloride 20 mEq daily. 6. Eliquis 5 mg b.i.d. ALLERGIES: PENICILLIN AND TETRACYCLINES. SOCIAL HISTORY: No alcohol, tobacco, or drugs. FAMILY HISTORY: Mother with coronary artery disease. Sister with atrial fibrillation. REVIEW OF SYSTEMS: A 12-point review of systems was done and was found to be negative other than stated in the history of present illness. PHYSICAL EXAMINATION: VITAL SIGNS: Temperature 98.2, respiratory rate 24, saturating 93% on room air, blood pressure 126/82, heart rate between 105 to 125. GENERAL: Awake, alert, oriented x3, in no distress. HEENT: Normocephalic, atraumatic. NECK: Supple. JVP up to about 12 cm of water. LUNGS: Have mild crackles at bases. CARDIOVASCULAR: S1 and S2. Irregularly irregular. Heart rate in the low 100s to 120s. There is a grade 2/6 systolic murmur at the right upper sternal border and a soft systolic murmur at the apex. ABDOMEN: Soft. Positive bowel sounds. No tenderness. EXTREMITIES: 1+ edema. SKIN: Warm and dry. LABORATORY DATA: Laboratory work was reviewed. White count of 8, hemoglobin 14, hematocrit 43, and platelet count of 275. Chemistries remarkable for creatinine of 1.6 and a BUN of 37 with GFR of 32. Her baseline creatinine had been at about 1.0. She was in the 1.7 to 1.6 range late August. Total bilirubin of 1.5, AST of 72, ALT of 126, alkaline phosphatase of 126, CK of 197. Troponin is negative x2 and BNP of 2464. Albumin of 4.1, normal TSH. Digoxin was undetectable. She is not taking digoxin anyways. Chest x-ray showed bilateral pleural effusions with atelectatic changes. Ultrasound of the abdomen secondary to abnormal LFTs showed 1.4 cm echogenic structure in the midportion of the gallbladder, which could be related to gallbladder wall thickening and gallbladder edema. Normal caliber common bile duct and moderate right-sided pleural effusion. EKG was reviewed. ASSESSMENT: 1. Acute on chronic systolic heart failure. 2. Atrial fibrillation with rapid ventricular response. 3. Persistent atrial fibrillation. PLAN: 1. IV diuresis with IV Lasix, already in 40 IV t.i.d. Agree with this. She will feel a lot better once fluid is out. 2. Continue rate control strategy for now and eventually, she will require an ablation. At this time, she is not even able to lay flat. 3. Continue Eliquis for full dose anticoagulation for stroke prophylaxis. 4. She has had some issues with her vision lately. She thinks she may have had a TIA. I would recommend her having an MRI of the brain in the next few days once she is able to lay flat to see if she has had any events recently. If this is the case, this would mean that she has failed Eliquis and would be a candidate for Watchman device. At this point, she just needs to be diuresed first before any of this happens. Thank you for letting us to participate in the care of your patient. Dr. Goldman, her primary natural resources technician will follow up in the morning. Job ID: [id number]
[2020-09-27 18:28] LABS: SARS-CoV-2 MS2 Positive; SARS-CoV-2 N Gene Negative; SARS-CoV-2 S Gene Negative; SARS-CoV-2 by NAA Not Detected (NotDetected); SARS-CoV-2 orf1ab Negative
[2020-09-27] MEDS ORDERED: Diltiazem 125 MG in Sodium Chloride 0.9% 100 ML IVPB SCH (18:30)
[2020-09-27] MEDS ORDERED: Metoprolol Tartrate 25 MG TAB PO SCH (21:00)
[2020-09-27] MEDS: Calcium Carbonate 500 MG TAB PO SCH (21:54)
[2020-09-27] MEDS: Apixaban 5 MG TAB PO SCH (21:54)
[2020-09-27] MEDS: Furosemide 40 MG/4 ML VIAL SLOW IVP SCH (23:40)
[2020-09-28] MEDS: Metoprolol Tartrate 25 MG TAB PO SCH ×3 (01:04→20:54)
[2020-09-28 05:12] LABS: #Basophils 0.1 thou/uL (0.0-0.2); #Eosinphils 0.2 thou/uL (0.0-0.7); #Lymphocytes 2.2 thou/uL (1.20-3.40); #Monocytes 0.8 thou/uL (0.11-0.59); #Neutrophils 3.6 thou/uL (1.40-6.50); %Basophils 0.8 % (0.0-1.0); %Eosinophils 2.6 % (0.0-10.0); %Monocytes 12.2 % (0.0-10.0); %Neutrophils 52.4 % (42.0-75.0); Hemoglobin 13.6 g/dL (12.0-16.0); Mean Corpuscular Volume 90.9 fL (78.0-98.0); Mean Platelet Volume 9.4 fL (7.4-10.4); Platelet Count 238 thou/uL (130-400); RBC Distribution Width 12.6 % (11.5-14.5); Red Blood Cell (RBC) Count 4.54 mill/uL (4.20-5.40); White Blood Cell (WBC) Count 6.9 thou/uL (4.8-10.8)
[2020-09-28 05:31] VITALS: BMI 28.0
[2020-09-28 05:39] LABS: Albumin 3.8 g/dL (3.4-4.8); Anion Gap 15 mmol/L (10-20); BUN (Urea Nitrogen) 31 mg/dL (9.8-20.1); Bilirubin, Total 1.1 mg/dL (0.2-1.2); Calc. Creatinine Clearance 57 mL/min (70-130); Calcium 9.2 mg/dL (7.8-10.44); Carbon Dioxide 33 mmol/L (23-31); Chloride 99 mmol/L (98-107); Globulin 2.2 g/dL (2.4-3.5); Glucose 103 mg/dL (83-110); Potassium 3.3 mmol/L (3.5-5.1); Sodium 144 mmol/L (136-145)
[2020-09-28 05:40] LABS: ALT (SGPT) 109 U/L (8-55); AST (SGOT) 52 U/L (5-34); Alkaline Phosphatase 114 U/L (40-110)
[2020-09-28] MEDS ORDERED: Levothyroxine Sodium 125 MCG TAB PO SCH ×2 (06:00)
[2020-09-28] MEDS ORDERED: Potassium Chloride 20 MEQ TAB PO SCH (09:00)
[2020-09-28] MEDS ORDERED: Losartan 25 MG TAB PO SCH (09:00)
[2020-09-28] MEDS: Apixaban 5 MG TAB PO SCH ×2 (09:38→20:54)
[2020-09-28] MEDS: Multivit, Therapeutic 1 TAB PO SCH (09:39)
[2020-09-28] MEDS: Furosemide 40 MG/4 ML VIAL SLOW IVP SCH ×3 (09:39→20:55)
[2020-09-28] MEDS: Calcium Carbonate 500 MG TAB PO SCH ×2 (09:39→20:54)
[2020-09-28] MEDS: Potassium Chloride 20 MEQ TAB PO SCH ×2 (14:42→20:53)
[2020-09-28] MEDS: Diltiazem 125 MG in Sodium Chloride 0.9% 100 ML IVPB SCH ×2 (17:43→22:15)
[2020-09-29] MEDS: Levothyroxine Sodium 125 MCG TAB PO SCH (04:58)
[2020-09-29 05:26] LABS: Anion Gap 14 mmol/L (10-20); BUN (Urea Nitrogen) 24 mg/dL (9.8-20.1); Calc. Creatinine Clearance 64 mL/min (70-130); Calcium 8.9 mg/dL (7.8-10.44); Carbon Dioxide 30 mmol/L (23-31); Chloride 100 mmol/L (98-107); Glucose 91 mg/dL (83-110); Potassium 3.3 mmol/L (3.5-5.1); Sodium 141 mmol/L (136-145)
[2020-09-29] MEDS: Potassium Chloride 20 MEQ TAB PO SCH ×3 (08:37→21:45)
[2020-09-29] MEDS: Metoprolol Tartrate 25 MG TAB PO SCH ×2 (08:37→21:45)
[2020-09-29] MEDS: Multivit, Therapeutic 1 TAB PO SCH (08:37)
[2020-09-29] MEDS: Apixaban 5 MG TAB PO SCH ×2 (08:37→21:45)
[2020-09-29] MEDS: Furosemide 40 MG/4 ML VIAL SLOW IVP SCH ×3 (08:37→21:45)
[2020-09-29] MEDS: Calcium Carbonate 500 MG TAB PO SCH ×2 (08:37→21:45)
--- NOTE | 2020-09-29 14:22 | EKG ---
Test Reason : Blood Pressure : / mmHG Vent. Rate : 139 BPM Atrial Rate : 159 BPM P-R Int : 000 ms QRS Dur : 066 ms QT Int : 334 ms P-R-T Axes : 000 091 102 degrees QTc Int : 508 ms Atrial fibrillation with rapid ventricular response Rightward axis Anterior infarct , age undetermined T wave abnormality, consider inferior ischemia or digitalis effect Abnormal ECG Confirmed by DELMA KENNEDY DO ([id number]), food editor AMADOR MONTAÑO ([id number]) on 09/29/2020 2:22:22 PM Referred By: Confirmed By:DELMA KENNEDY DO
[2020-09-29] MEDS: Diltiazem 125 MG in Sodium Chloride 0.9% 100 ML IVPB SCH (18:52)
[2020-09-30 04:59] LABS: Anion Gap 15 mmol/L (10-20); BUN (Urea Nitrogen) 25 mg/dL (9.8-20.1); Calc. Creatinine Clearance 64 mL/min (70-130); Calcium 8.7 mg/dL (7.8-10.44); Carbon Dioxide 30 mmol/L (23-31); Chloride 99 mmol/L (98-107); Glucose 106 mg/dL (83-110); Potassium 3.5 mmol/L (3.5-5.1); Sodium 140 mmol/L (136-145)
[2020-09-30] MEDS: Levothyroxine Sodium 125 MCG TAB PO SCH (05:22)
[2020-09-30] MEDS: Apixaban 5 MG TAB PO SCH ×2 (08:49→20:53)
[2020-09-30] MEDS: Metoprolol Tartrate 25 MG TAB PO SCH ×2 (08:50→20:53)
[2020-09-30] MEDS: Furosemide 40 MG/4 ML VIAL SLOW IVP SCH ×2 (08:50→15:07)
[2020-09-30] MEDS: Potassium Chloride 20 MEQ TAB PO SCH ×3 (08:50→20:53)
[2020-09-30] MEDS: Calcium Carbonate 500 MG TAB PO SCH ×2 (08:50→20:53)
[2020-09-30] MEDS: Multivit, Therapeutic 1 TAB PO SCH (08:50)
[2020-10-01 04:50] LABS: Anion Gap 13 mmol/L (10-20); BUN (Urea Nitrogen) 24 mg/dL (9.8-20.1); Calc. Creatinine Clearance 65 mL/min (70-130); Calcium 9.1 mg/dL (7.8-10.44); Carbon Dioxide 32 mmol/L (23-31); Chloride 100 mmol/L (98-107); Glucose 112 mg/dL (83-110); Potassium 3.6 mmol/L (3.5-5.1); Sodium 141 mmol/L (136-145)
[2020-10-01] MEDS: Furosemide 40 MG/4 ML VIAL SLOW IVP SCH ×2 (05:29→16:09)
[2020-10-01] MEDS: Levothyroxine Sodium 125 MCG TAB PO SCH (05:31)
[2020-10-01] MEDS: Diltiazem 125 MG in Sodium Chloride 0.9% 100 ML IVPB SCH (07:36)
[2020-10-01] MEDS ORDERED: Ondansetron PF 4 MG/2 ML Vial ONE (08:48)
[2020-10-01] MEDS ORDERED: Lidocaine 1% PF 5 ML VIAL ONE (08:48)
[2020-10-01] MEDS ORDERED: Glycopyrrolate 0.2 MG/ML 5 ML SYRINGE ONE (08:48)
[2020-10-01] MEDS ORDERED: Rocuronium Bromide 10 MG/ML (10ML VIAL) ONE (08:48)
[2020-10-01] MEDS ORDERED: PROPOFOL 200 MG/20 ML VIAL ONE (08:48)
[2020-10-01] MEDS ORDERED: Vecuronium 10 MG VIAL ONE (08:48)
[2020-10-01] MEDS ORDERED: Dexamethasone 20 MG/5 ML VIAL ONE (08:48)
[2020-10-01] MEDS ORDERED: PHENYLEPHRINE-NS 100 MCG/ML 10 ML SYRINGE ONE (08:48)
[2020-10-01] MEDS ORDERED: ePHEDrine 50 MG/ML VIAL ONE (08:48)
[2020-10-01] MEDS ORDERED: Metoclopramide HCl 10 MG/2 ML VIAL ONE (08:48)
[2020-10-01] MEDS ORDERED: Heparin 10,000 UNITS/ 10 ML VIAL ONE ×2 (08:52→11:59)
[2020-10-01] MEDS ORDERED: Fentanyl 100 MCG/2 ML VIAL ONE (08:52)
--- NOTE | 2020-10-01 09:09 | RAD ---
Chest one view HISTORY: Pleural effusions. COMPARISON: 09/27/2020. FINDINGS: Cardiac silhouette is magnified by projection and partially obscured by pleural and parench ymal opacity at each base that are similar in appearance to the prior exam. Mediastinum is midline with aortic calcification. Pulmonary vasculature upper limits of normal. Upper lobes are free of infiltrate. No pneumothorax. IMPRESSION : Bilateral pleural fluid, right greater than left, and bibasilar atelectasis are stable. No new abnorm alities.
[2020-10-01] MEDS ORDERED: Phenylephrine 10 MG/ML VIAL ONE (09:40)
[2020-10-01] MEDS ORDERED: Heparin 25,000 units/D5W 500 ML ONE (10:02)
--- NOTE | 2020-10-01 10:52 | CON ---
DATE OF CONSULTATION: 10/01/2020 PRIMARY HOSPITALIST: Dr. Burton. I am seeing Ms. Tellez at our [facility] Telemetry Floor as an electrophysiology analysis consultant. Her problems are: 1. Acute worsening systolic congestive heart failure. a. History of reduced LVEF of 40-45% on echo 09/13/2020 and 45-50% on echo September 28, 2020, moderate MR, moderate to severe TR, mild biatrial enlargement. b. Current admission for heart failure exacerbation, suctioning diuresed by today. 2. Persistent atrial fibrillation. a. DEX-guided cardioversion 09/13/2020 with Multaq use, unsuccessful, converted back to sinus rhythm. b. Atrial fibrillation with rapid ventricular rates on admission. 3. History of normal nuclear stress test in January 2019. 4. Hypertension. 5. Hypothyroidism. ALLERGIES: MULTAQ INTOLERANCE, AMLODIPINE, PENICILLIN, TETRACYCLINE. MEDICATIONS: At home included, 1. Apixaban 5 mg twice a day. 2. Lasix. 3. Avapro. 4. Levothyroxine. 5. Multivitamin. 6. Potassium chloride. SUBJECTIVE: Ms. Tellez seeing me in the office on the . Since then, she continued to be progressively more and more dyspneic and eventually required admission to the hospital for IV diuretics. She has been diuresed well since the and initial orthopnea resolved. She lost significant amount of weight and swelling also improved. Currently, she denies PND, orthopnea. No chest pains. No fever, chills, or cough. She had a transient floater in her eye on Thursday, but never came back. REVIEW OF SYSTEMS: Rest of 12-point review of system otherwise unremarkable. PAST MEDICAL HISTORY: As above. SURGICAL HISTORY: She has surgical history of eye surgery in the past. FAMILY HISTORY: Mother with history of coronary artery disease. Father with atrial fibrillation with pacemaker and diabetes as well. OBJECTIVE DATA: VITAL SIGNS: Blood pressure 130/68, heart rate 102, O2 saturation is 97, and respiratory rate is 17, temperature 97.9 degrees Fahrenheit. GENERAL: The physical exam reveals an alert and oriented woman, in no apparent distress. NECK: Supple. Jugular veins not distended. Hepatojugular reflux is still positive. CHEST: Coarse without crackles. HEART: Sounds are irregularly irregular, S1 variable. I do not hear a loud murmur or gallop. PMI is nondisplaced. ABDOMEN: Benign. Bowel sounds are positive. LOWER EXTREMITIES: Without edema, clubbing, or cyanosis. NEUROLOGIC: The patient is nonfocal. MUSCULOSKELETAL: No joint swelling or deformities. SKIN: Without rash. DATABASE: The EKG is reviewed, revealing atrial fibrillation, rapid rates at 140 beats per minute, narrow QRS, QTc is prolonged at 508 milliseconds. LABORATORY DATA: White cell count 6.9, hemoglobin 13.6, platelet count is 238. Sodium 141, potassium 3.6, BUN is 24, creatinine 1.01. COVID virus PCR negative. Chest x-ray from 09/17/2020 shows pleural effusions, atelectatic changes. ASSESSMENT AND PLAN: Ms. Tellez is a pleasant 74-year-old woman with a history of systolic/diastolic heart failure and atrial fibrillation with rapid rates. Atrial fibrillation has not responded well to Multaq. She is likely in heart failure because of the persistent atrial fibrillation with rapid rates. As I discussed with Dr. Goldman, hence the hospitalization for heart failure, which seems to be resolving now, but still requiring IV Lasix and diltiazem, likely will not be responding well to conservative therapy long-term. It would be imperative to proceed with a pulmonary venous isolation earlier than later. We have discussed the pros and cons of this even in the office visit. I again reiterated these issues including risk of stroke, further worsening CHF, recurrent atrial fibrillation, esophageal damage or tamponade requiring surgical intervention. She understands, willing to proceed. We will expedite this procedure probably can be done this morning. Hence, she has been well anticoagulated with Eliquis. I am not expecting any thrombus burden, and her minor visual changes are likely not true stroke- related issues. Will use ice catheter to assess the appendage as well during the procedure. Elevated CHADS-VASc score with her heart failure, CHF, hypertension, and age and gender at 4, on Eliquis therapy without interruption. Hypertension, reasonably controlled. Elevated liver enzymes, likely congestion related. For now, I would continue holding Multaq. Job ID: [id number] [facility]
[2020-10-01] MEDS ORDERED: Isoproterenol 0.2 MG/1 ML AMP ONE ×3 (11:38→12:39)
[2020-10-01] MEDS: Calcium Carbonate 500 MG TAB PO SCH ×2 (14:01→20:52)
[2020-10-01] MEDS: Potassium Chloride 20 MEQ TAB PO SCH ×3 (14:02→20:53)
[2020-10-01] MEDS: Multivit, Therapeutic 1 TAB PO SCH (14:02)
[2020-10-01] MEDS: Metoprolol Tartrate 25 MG TAB PO SCH ×2 (14:02→20:52)
[2020-10-01] MEDS ORDERED: Ketorolac Tromethamine 30 MG/ML VIAL ONE (14:14)
--- NOTE | 2020-10-01 17:15 | OP ---
DATE OF PROCEDURE: 10/01/2020 PROCEDURE PERFORMED: Electrophysiology study and radiofrequency ablation. REASON FOR PROCEDURE: Ms. Tellez is a 74-year-old woman with a history of persistent atrial fibrillation despite Multaq and cardioversion. She also had difficult ventricular rate control and has developed progressive heart failure due to the rapid ventricular rates, her LVEF is about 45% to 50% on echocardiogram. She has been adequately anticoagulated without fail with Eliquis. She is here for an atrial fibrillation ablation procedure. DESCRIPTION OF PROCEDURE: The patient received general anesthesia by anesthesia specialist. Left and right femoral veins were prepped, draped, and anesthetized using subcutaneous lidocaine. Under ultrasound guidance, both femoral veins were cannulated x2. On the left side, an 8-[place]izen [place] sheath and an 11-[place] sheath were used to advance a DecaNav and an intracardiac echocardiogram probe into the right atrium. 3D map of the right atrium was obtained with a DecaNav CARTO catheter, delineating the His bundle, CS, SVC, IVC, and CTI area. Eventually, the catheter was placed in the CS. The intracardiac probe was used to monitor the catheter placement, the pericardial space, and the transseptal procedure. On the right side, two 8-[place]izen [place] sheaths were initially placed, which were exchanged to two SL1 catheters. IV bolus heparin and drip were administered, which was monitored throughout the procedure and adjusted to keep ACT over 350. Transseptal catheterization was performed using the SL1 sheath and a powered [place] needle. This was done under x-ray and ultrasound monitoring. Through the SL1 sheaths, a ThermoCool SFST and a 20-pole deflectable Lasso catheter were advanced to the left atrium. 3D map of the left atrium was obtained. Four separate pulmonary veins were seen. Large left atrial size was seen about 150 cc and significant amount of baseline scarring was seen. Following this, standard pulmonary venous isolation was performed with special attention was paid to the posterior wall to avoid excessive heating. The esophageal probe was adjusted throughout the procedure and any temperature rise was met with extra irrigation through the ablation catheter. A roof line and then inferoposterior line were also drawn to isolate the posterior wall. Following these efforts, though the patient remained in atrial fibrillation, therefore ablation was performed in the inferior wall over the CS roof, isolating the inferior wall as well. Following that, the patient remained in atrial fibrillation. Additional lesions were placed in the interatrial septum. Despite that the patient remained in atrial fibrillation. Synchronized cardioversion was performed then to restore sinus rhythm. While catheter manipulation, the patient developed an atrial flutter, which appears to be left atrial based on pace mapping. A 3D map of atrial flutter was obtained. Eventually, radiofrequency ablation was performed in the anterior roof at the site of a slow conduction. The cycle length was 260 milliseconds. This ablation converted the flutter into another flutter with cycle length of 200 milliseconds. Additional lesions were placed in the anterior roof and the fast flutter at 200 milliseconds converted into a slow flutter at 400 milliseconds. Further lesions at the base of left atrium did terminate this atrial flutter into sinus rhythm. No additional flutter was inducible with burst atrial pacing and on Isuprel. At this point, Isuprel was administered to assess further inducibility of additional arrhythmias. The pulmonary veins, posterior wall, and inferior wall remained silent. No additional seen on Isuprel. Also, a standard EP study was performed, demonstrating retrograde Wenckebach cycle length of 410 milliseconds, antegrade Wenckebach cycle length of 230 milliseconds, AV terrence ERP was 400/200 milliseconds. Burst atrial pacing did not re-induce atrial flutter at this time on Isuprel. Concentric retrograde VA conduction was seen and no dual AV terrence physiology was present. The catheter was then removed from the left side. IV heparin was stopped and reversed with protamine. The intracardiac echo probe and the cardiac silhouette did not reveal significant pericardial effusion. Small amount of effusion seen only close to the baseline. The catheters were removed. Sheaths were exchanged for short sheaths, and Vascade closure was performed on the femoral venous access site. The patient tolerated it well. No complications noted. NUMERICAL FINDINGS: Baseline rhythm is atrial fibrillation, cycle length 722 millisecondsBaseline rhythm sinus rhythm, [place] 170 milliseconds, QRS 82 milliseconds, QT 378 milliseconds, HV 35 milliseconds noted. AV Wenckebach cycle length 230 milliseconds. Retrograde Wenckebach cycle length [address] AV terrence ERP was 400/200 milliseconds. A total of 145 lesions placed at 40 sanchez. Total ablation time was 38 minutes. CONCLUSION: 1. Successful isolation of all 4 pulmonary veins. 2. Posterior wall and inferior wall at the base of the left atrium was isolated. 3. Most of the anterior roof also isolated. 4. Additional lesion in the interatrial septal area was also placed. 5. 3 separate morphology atrial flutter terminated with ablation at the anterior roof of the left atrium. 6. Normal sinus and AV terrence function. 7. No evidence of accessory pathway or dual AV terrence physiology present. 8. No inducible atrial arrhythmias or additional SVT seen with standard EP study. PLAN: Resume anticoagulation. Monitor for recurrent atrial arrhythmias. [facility] [id number] [facility]
[2020-10-01] MEDS: Apixaban 5 MG TAB PO SCH (20:52)
[2020-10-02] MEDS ORDERED: Diltiazem HCl 125 MG, Admixture Fee 1 EACH in Sodium Chloride 0.9% 100 ML IVPB SCH (04:45)
[2020-10-02 04:54] LABS: ALT (SGPT) 42 U/L (8-55); AST (SGOT) 55 U/L (5-34); Albumin 3.5 g/dL (3.4-4.8); Alkaline Phosphatase 92 U/L (40-110); Anion Gap 14 mmol/L (10-20); BUN (Urea Nitrogen) 22 mg/dL (9.8-20.1); Bilirubin, Total 0.8 mg/dL (0.2-1.2); Calc. Creatinine Clearance 63 mL/min (70-130); Calcium 8.3 mg/dL (7.8-10.44); Carbon Dioxide 29 mmol/L (23-31); Chloride 99 mmol/L (98-107); Globulin 2.5 g/dL (2.4-3.5); Glucose 151 mg/dL (83-110); Potassium 3.7 mmol/L (3.5-5.1); Sodium 138 mmol/L (136-145)
[2020-10-02] MEDS: Levothyroxine Sodium 125 MCG TAB PO SCH (04:56)
[2020-10-02] MEDS: Furosemide 40 MG/4 ML VIAL SLOW IVP SCH ×2 (06:07→15:30)
[2020-10-02] MEDS ORDERED: Amiodarone 150 MG in Dextrose 5% in Water 100 ML IVPB SCH (09:15)
--- NOTE | 2020-10-02 09:15 | PDOC.EP ---
- Subjective Date: 10/02/20 Time: 09:14 Interval History: Dpoen well overnight, but developed atrial flutter with RVR this am. IV diltiazem started. - Review of Systems Constitutional: denies: chills, fever, malaise, sweats, weakness, other Respiratory: denies: cough, dry, hemoptysis, pleuritic pain, shortness of breath, SOB with excertion, sputum, wheezing, other Cardiology: reports: palpitations. denies: chest pain, edema, heart racing Gastrointestinal: denies: abdominal pain, constipation, diarrhea, nausea, vomitting Musculoskeletal: denies: leg pain Neurological: denies: headache, vision changes - Objective Allergies/Adverse Reactions: Allergies Allergy/AdvReac Type Severity Reaction Status Date / Time amlodipine Allergy Verified 09/27/20 15:26 Penicillins Allergy Verified 09/27/20 15:26 Tetracyclines Allergy Verified 09/27/20 15:26 Current Medications Acetaminophen (Acetaminophen 325 Mg Tab) 650 mg PO Q4H PRN PRN Reason: Headache/Fever/Mild Pain (1-3) Apixaban (Apixaban 5 Mg Tab) 5 mg PO BID [facility] Last Admin: 10/01/20 20:52 Dose: 5 mg Documented by: Bisacodyl (Bisacodyl 5 Mg Tab) 10 mg PO DAILYPRN PRN PRN Reason: Constipation Calcium Carbonate (Calcium Carbonate 500 Mg Tab) 500 mg PO BID [facility] Last Admin: 10/01/20 20:52 Dose: 500 mg Documented by: Furosemide (Furosemide 40 Mg/4 Ml Vial) 40 mg SLOW IVP 0600,1400 [facility] Last Admin: 10/02/20 06:07 Dose: 40 mg Documented by: Amiodarone HCl 150 mg/ (Dextrose/Water) 103 mls @ 618 mls/hr IVPB NOW [facility] Stop: 10/02/20 12:00 Amiodarone HCl 450 mg/ (Dextrose/Water) 259 mls @ 0 mls/hr IVPB INF [facility]; Protocol Metoprolol Tartrate (Metoprolol Tartrate 25 Mg Tab) 50 mg PO BID [facility] Last Admin: 10/01/20 20:52 Dose: 50 mg Documented by: Multivitamins (Multivit, Therapeutic 1 Tab) 1 tab PO DAILY [facility] Last Admin: 10/01/20 14:02 Dose: Not Given Documented by: Levothyroxine Sodium (125 Mcg Tab) 1 each PO 0500 [facility] Last Admin: 10/02/20 04:56 Dose: 1 each Documented by: Potassium Chloride (Potassium Chloride 20 Meq Tab) 20 meq PO TID [facility] Last Admin: 10/01/20 20:53 Dose: 20 meq Documented by: Senna/Docusate Sodium (Senokot S 8.6-50 Mg Tab) 2 tab PO BIDPRN PRN PRN Reason: Constipation Sodium Chloride (Flush - Normal Saline 10 Ml Syringe) 10 ml IVF Q12HR [facility] Last Admin: 10/01/20 20:53 Dose: 10 ml Documented by: Sodium Chloride (Flush - Normal Saline 10 Ml Syringe) 10 ml IVF PRN PRN PRN Reason: Saline Flush Vital Signs & Weight: Vital Signs Temp Pulse Resp BP Pulse Ox 10/02/20 08:00 97.7 F 146 H 17 112/82 95 10/02/20 04:00 98.5 F 107 H 29 H 118/70 93 L 10/02/20 00:00 97.7 F 101 H 22 H 120/70 93 L Weight 187 lb 1 oz I/O: I/O 10/01/20 10/02/20 10/03/20 06:59 06:59 06:59 Intake Total 1097 2414 Output Total 2750 1300 Balance -1653 1114 - Quality Measures CV meds: Eliquis: Yes - Physical Exam General: alert & oriented x3, appears well, no apparent distress HEENT: normocephaly Neck: no JVD/HJR Cardiology: no murmur Lungs: normal breath sounds Neurology: grossly intact Abdomen: unremarkable, soft, non-tender Extremities: warm Skin: groin sites stable Musculoskeletal: no pain, no fluid collection - Chadsvasc Risk factors Congestive heart failure: 1 Hypertension: 1 Age 65-74: 1 Female: 1 Risk Score: 4 - Labs Result Diagrams: 09/28/20 04:27 10/02/20 04:06 - EKG Interpretation EKG Method: Telemetry (Atypical Atrial flutter) - Assessment/Plan Assessment/Plan: ASSESSMENT AND PLAN: Ms. Tellez is a pleasant 74-year-old woman with a history of systolic/diastolic heart failure and atrial fibrillation with rapid rates. Atrial fibrillation has not responded well to Multaq. She is likely in heart failure because of the persistent atrial fibrillation with rapid rates. 1. Acute worsening systolic congestive heart failure. a. History of reduced LVEF of 40-45% on echo 09/13/2020 and 45-50% on echo September 28, 2020, moderate MR, moderate to severe TR, mild biatrial enlargement. b. Current admission for heart failure exacerbation, suctioning diuresed by today. 2. Persistent atrial fibrillation. a. DEX-guided cardioversion 09/13/2020 with Multaq use, unsuccessful, converted back to sinus rhythm. b. Atrial fibrillation with rapid ventricular rates on admission. c. 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 Postop recurrent atrial flutter 3. History of normal nuclear stress test in January 2019. 4. Hypertension. 5. Hypothyroidism. 10/02/20 S/P PVAI/PW and basal LA isolation. LA septum ablation(39min) POD#1. N o acute complications noted. Recurrent atrial flutter with RVR noted this am requiring IV dilt but insufficient rate control. I am planning to add IV Amiodarone and wean off dilt. Switch to PO amio am. Home once HR<100. Plan outpt CV next week. Risk of pulmonary, thyroid and liver related side effects discussed. She prefers amio over tykosin hence increased potency. Elevated CHADS-VASc score with her heart failure, CHF, hypertension, and age and gender at 6, on Eliquis therapy Hypertension, reasonably controlled. H/O Elevated liver enzymes, likely congestion related. Monitor on amiodarone.
[2020-10-02] MEDS: Potassium Chloride 20 MEQ TAB PO SCH ×3 (09:32→20:34)
[2020-10-02] MEDS: Metoprolol Tartrate 25 MG TAB PO SCH ×2 (09:32→20:34)
[2020-10-02] MEDS: Calcium Carbonate 500 MG TAB PO SCH ×2 (09:32→20:33)
[2020-10-02] MEDS: Multivit, Therapeutic 1 TAB PO SCH (09:32)
[2020-10-02] MEDS: Apixaban 5 MG TAB PO SCH ×2 (09:32→20:33)
[2020-10-02] MEDS: Amiodarone 450 MG in Dextrose 5% in Water 250 ML IVPB SCH ×2 (09:54→17:23)
--- NOTE | 2020-10-02 11:23 | EKG ---
Test Reason : S/P AFIB ABLATION Blood Pressure : / mmHG Vent. Rate : 089 BPM Atrial Rate : 089 BPM P-R Int : 172 ms QRS Dur : 080 ms QT Int : 410 ms P-R-T Axes : 085 085 107 degrees QTc Int : 498 ms Sinus rhythm with Premature atrial complexes with Abberant conduction Prolonged QT Abnormal ECG Confirmed by WILBER DONOVAN ([id number]) on 10/02/2020 11:23:43 AM Referred By: DESTIN Confirmed By:WILBER DONOVAN
[2020-10-03] MEDS: Furosemide 40 MG/4 ML VIAL SLOW IVP SCH ×2 (05:37→14:47)
[2020-10-03] MEDS: Levothyroxine Sodium 125 MCG TAB PO SCH (05:37)
[2020-10-03 05:41] LABS: ALT (SGPT) 35 U/L (8-55); AST (SGOT) 41 U/L (5-34); Albumin 3.5 g/dL (3.4-4.8); Alkaline Phosphatase 95 U/L (40-110); Anion Gap 13 mmol/L (10-20); BUN (Urea Nitrogen) 30 mg/dL (9.8-20.1); Bilirubin, Total 0.7 mg/dL (0.2-1.2); Calc. Creatinine Clearance 64 mL/min (70-130); Calcium 8.9 mg/dL (7.8-10.44); Carbon Dioxide 28 mmol/L (23-31); Chloride 100 mmol/L (98-107); Globulin 2.7 g/dL (2.4-3.5); Glucose 118 mg/dL (83-110); Potassium 4.3 mmol/L (3.5-5.1); Protein, Total 6.2 g/dL (6.0-8.3); Sodium 137 mmol/L (136-145)
[2020-10-03] MEDS ORDERED: Cepastat Lozenges 1 LOZ PO PRN (07:49)
[2020-10-03] MEDS: Calcium Carbonate 500 MG TAB PO SCH ×2 (09:45→21:11)
[2020-10-03] MEDS: Potassium Chloride 20 MEQ TAB PO SCH ×3 (09:46→21:11)
[2020-10-03] MEDS: Multivit, Therapeutic 1 TAB PO SCH (09:46)
[2020-10-03] MEDS: Apixaban 5 MG TAB PO SCH ×2 (09:46→21:11)
[2020-10-03] MEDS: Amiodarone 450 MG in Dextrose 5% in Water 250 ML IVPB SCH ×2 (09:47→23:15)
[2020-10-03] MEDS: Docusate 100 MG CAP PO SCH ×2 (09:50→21:11)
[2020-10-03] MEDS: Metoprolol Tartrate 50 MG TAB PO SCH ×2 (09:50→21:10)
--- NOTE | 2020-10-03 12:45 | PDOC.EP ---
- Subjective Date: 10/03/20 Time: 08:00 Interval History: Feels fair but remains tachycardic. eager to go home - Review of Systems Constitutional: denies: chills, fever, malaise, sweats, weakness, other Respiratory: denies: cough, dry, hemoptysis, pleuritic pain, shortness of breath, SOB with excertion, sputum, wheezing, other Cardiology: reports: chest pain (with inspiration). denies: edema, heart raci ng, light headedness, paroxysmal noc. dyspnea, palpitations, passing out Gastrointestinal: denies: abdominal pain, constipation, nausea, vomitting Musculoskeletal: denies: unstable gait, falls, leg pain - Objective Allergies/Adverse Reactions: Allergies Allergy/AdvReac Type Severity Reaction Status Date / Time amlodipine Allergy Verified 09/27/20 15:26 Penicillins Allergy Verified 09/27/20 15:26 Tetracyclines Allergy Verified 09/27/20 15:26 Current Medications Acetaminophen (Acetaminophen 325 Mg Tab) 650 mg PO Q4H PRN PRN Reason: Headache/Fever/Mild Pain (1-3) Apixaban (Apixaban 5 Mg Tab) 5 mg PO BID [facility] Last Admin: 10/03/20 09:46 Dose: 5 mg Documented by: Bisacodyl (Bisacodyl 5 Mg Tab) 10 mg PO DAILYPRN PRN PRN Reason: Constipation Calcium Carbonate (Calcium Carbonate 500 Mg Tab) 500 mg PO BID [facility] Last Admin: 10/03/20 09:45 Dose: 500 mg Documented by: Diltiazem HCl (Diltiazem Hcl Cd 180 Mg Capsule) 180 mg PO DAILY [facility] Last Admin: 10/03/20 09:50 Dose: 180 mg Documented by: Docusate Sodium (Docusate 100 Mg Cap) 100 mg PO BID [facility] Last Admin: 10/03/20 09:50 Dose: 100 mg Documented by: Furosemide (Furosemide 40 Mg/4 Ml Vial) 40 mg SLOW IVP 0600,1400 [facility] Last Admin: 10/03/20 05:37 Dose: 40 mg Documented by: Amiodarone HCl 450 mg/ (Dextrose/Water) 259 mls @ 0 mls/hr IVPB INF [facility]; Protocol Last Admin: 10/03/20 09:47 Dose: 259 mls Documented by: Metoprolol Tartrate (Metoprolol Tartrate 50 Mg Tab) 75 mg PO BID [facility] Last Admin: 10/03/20 09:50 Dose: 75 mg Documented by: Multivitamins (Multivit, Therapeutic 1 Tab) 1 tab PO DAILY [facility] Last Admin: 10/03/20 09:46 Dose: 1 tab Documented by: Levothyroxine Sodium (125 Mcg Tab) 1 each PO 0500 [facility] Last Admin: 10/03/20 05:37 Dose: 1 each Documented by: Potassium Chloride (Potassium Chloride 20 Meq Tab) 20 meq PO TID [facility] Last Admin: 10/03/20 09:46 Dose: 20 meq Documented by: Senna/Docusate Sodium (Senokot S 8.6-50 Mg Tab) 2 tab PO BIDPRN PRN PRN Reason: Constipation Last Admin: 10/02/20 20:33 Dose: 2 tab Documented by: Sodium Chloride (Flush - Normal Saline 10 Ml Syringe) 10 ml IVF Q12HR [facility] Last Admin: 10/03/20 09:46 Dose: Not Given Documented by: Sodium Chloride (Flush - Normal Saline 10 Ml Syringe) 10 ml IVF PRN PRN PRN Reason: Saline Flush Throat Lozenges (Cepastat Lozenges 1 Lynn) 1 lynn PO Q2H PRN PRN Reason: Sore Throat Last Admin: 10/03/20 09:45 Dose: 1 lynn Documented by: Vital Signs & Weight: Vital Signs Temp Pulse Resp BP Pulse Ox 10/03/20 11:12 97.6 F 129 H 18 138/92 H 96 10/03/20 07:05 97.8 F 129 H 20 137/96 H 97 10/03/20 05:26 128 H 18 131/96 H 99 Weight 191 lb 7.014 oz I/O: I/O 10/02/20 10/03/20 10/04/20 06:59 06:59 06:59 Intake Total 2414 2710 Output Total 1300 2500 300 Balance 1114 210 -300 - Quality Measures Condition: Atrial Fibrillation/Flutter (hx or current) CV meds: Eliquis: Yes - Physical Exam General: alert & oriented x3, appears well, no apparent distress, speech clear, affect appropriate HEENT: mucus membranes moist, normocephaly Neck: supple neck, midline trachea, no JVD/HJR, no masses, no bruit, no lymphadenopathy, no thromegaly Cardiology: no murmur, tachycardia Lungs: negative: clear to auscultation, normal breath sounds, no wheeze, rales, rhonchi Neurology: negative: cranial nerve 2-12 intact, grossly intact, no lateralizing findings Abdomen: negative: unremarkable, active bowel sounds, no pulsations/bruits Extremities: negative: dry, strong pulses, warm - Labs Result Diagrams: 09/28/20 04:27 10/03/20 04:13 - EKG Interpretation EKG Method: Telemetry EKG shows: Atypical atrial flutter (2:1) - Assessment/Plan Assessment/Plan: ASSESSMENT AND PLAN: Ms. Tellez is a pleasant 74-year-old woman with a history of systolic/diastolic heart failure and atrial fibrillation with rapid rates. Atrial fibrillation has not responded well to Multaq. She is likely in heart failure because of the persistent atrial fibrillation with rapid rates. 1. Acute worsening systolic congestive heart failure. a. History of reduced LVEF of 40-45% on echo 09/13/2020 and 45-50% on echo September 28, 2020, moderate MR, moderate to severe TR, mild biatrial enlargement. b. Current admission for heart failure exacerbation, suctioning diuresed by today. 2. Persistent atrial fibrillation. a. DEX-guided cardioversion 09/13/2020 with Multaq use, unsuccessful, converted back to sinus rhythm. b. Atrial fibrillation with rapid ventricular rates on admission. c. 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 Postop recurrent atrial flutter 3. History of normal nuclear stress test in January 2019. 4. Hypertension. 5. Hypothyroidism. 10/02/20 S/P PVAI/PW and basal LA isolation. LA septum ablation(39min) POD#1. No acute complications noted. Recurrent atrial flutter with RVR noted this am requiring IV dilt but insufficient rate control. Continue IV amiodarone if IV access permits. Otherwise Amiodarone 400mg BID could be initated. Plan for CV tomorrow with Dr mary Valverde and carafate for Chest discomfort which may be GI/post ablation discomfort. Use Toradol IV push PRN Elevated CHADS-VASc score with her heart failure, CHF, hypertension, and age and gender at 6, on Eliquis therapy H/O Elevated liver enzymes, likely congestion related. Monitor on amiodarone.
[2020-10-03] MEDS ORDERED: Ketorolac Tromethamine 30 MG/ML VIAL IVP PRN (12:49)
[2020-10-03] MEDS ORDERED: Pantoprazole 40 MG VIAL IVP SCH (12:50)
[2020-10-03] MEDS: Sucralfate 1 GM TAB PO SCH ×2 (17:01→21:11)
[2020-10-04 04:26] LABS: #Basophils 0.1 thou/uL (0.0-0.2); #Eosinphils 0.3 thou/uL (0.0-0.7); #Lymphocytes 2.5 thou/uL (1.20-3.40); #Monocytes 1.2 thou/uL (0.11-0.59); #Neutrophils 6.6 thou/uL (1.40-6.50); %Basophils 0.8 % (0.0-1.0); %Lymphocytes 23.3 % (21.0-51.0); %Monocytes 11.1 % (0.0-10.0); %Neutrophils 61.8 % (42.0-75.0); Hemoglobin 13.5 g/dL (12.0-16.0); Mean Corpuscular HGB CONC 32.3 g/dL (32.0-36.0); Mean Corpuscular Hemoglobin 29.3 pg (27.0-31.0); Mean Corpuscular Volume 90.7 fL (78.0-98.0); Platelet Count 245 thou/uL (130-400); RBC Distribution Width 12.6 % (11.5-14.5); Red Blood Cell (RBC) Count 4.61 mill/uL (4.20-5.40); White Blood Cell (WBC) Count 10.7 thou/uL (4.8-10.8)
[2020-10-04 04:45] LABS: Anion Gap 12 mmol/L (10-20); BUN (Urea Nitrogen) 23 mg/dL (9.8-20.1); Calc. Creatinine Clearance 80 mL/min (70-130); Calcium 8.9 mg/dL (7.8-10.44); Carbon Dioxide 29 mmol/L (23-31); Chloride 100 mmol/L (98-107); Glucose 105 mg/dL (83-110); Potassium 3.9 mmol/L (3.5-5.1); Sodium 137 mmol/L (136-145)
[2020-10-04] MEDS: Levothyroxine Sodium 125 MCG TAB PO SCH (05:00)
[2020-10-04] MEDS: Furosemide 40 MG/4 ML VIAL SLOW IVP SCH (06:05)
[2020-10-04] MEDS ORDERED: Lidocaine 1% PF 5 ML VIAL ONE ×2 (08:08→09:07)
[2020-10-04] MEDS ORDERED: PROPOFOL 20 ML ONE (08:08)
[2020-10-04] MEDS ORDERED: PROPOFOL 200 MG/20 ML VIAL ONE (09:07)
--- NOTE | 2020-10-04 09:22 | EKG ---
Test Reason : Blood Pressure : / mmHG Vent. Rate : 130 BPM Atrial Rate : 260 BPM P-R Int : 000 ms QRS Dur : 082 ms QT Int : 318 ms P-R-T Axes : 235 067 093 degrees QTc Int : 467 ms Atrial flutter with 2:1 A-V conduction Nonspecific ST and T wave abnormality Abnormal ECG Confirmed by WILBER DONOVAN ([id number]) on 10/04/2020 9:22:10 AM Referred By: FUNMI Confirmed By:WILBER DONOVAN
[2020-10-04] MEDS: Sucralfate 1 GM TAB PO SCH ×5 (09:32→21:06)
[2020-10-04] MEDS: Potassium Chloride 20 MEQ TAB PO SCH ×4 (09:33→21:06)
[2020-10-04] MEDS: Calcium Carbonate 500 MG TAB PO SCH ×2 (09:33→21:06)
[2020-10-04] MEDS: Amiodarone 200 MG TAB PO SCH ×2 (09:33→21:05)
[2020-10-04] MEDS: Apixaban 5 MG TAB PO SCH ×2 (09:33→21:06)
[2020-10-04] MEDS: Docusate 100 MG CAP PO SCH ×2 (09:33→21:06)
[2020-10-04] MEDS: Metoprolol Tartrate 50 MG TAB PO SCH ×2 (09:33→21:05)
[2020-10-04] MEDS: Multivit, Therapeutic 1 TAB PO SCH (09:34)
--- NOTE | 2020-10-04 15:34 | PDOC.BPN ---
- Brief Progress Note Encounter Date: 10/04/20 Encounter Time: 08:00 Patient off floor for cardioversion and not seen. Plan for transition to PO amiodarone after CV today. If remains in SR may DC home at the discretion of cardiology. Follow up appointment in 6 week will be arranged. Continue on DC post ablation: 1. Eliquis 5mg BID 2. Carafate 1 gram QID PO x 2 weeks 3. Protonix 40mg daily x 30 days 4. Lasix 40mg PO PRN fluid retention + KCl 20mEq PO 5. Amiodarone taper, goal 200mg daily in 3-4 weeks
[2020-10-05 05:12] LABS: Anion Gap 16 mmol/L (10-20); BUN (Urea Nitrogen) 23 mg/dL (9.8-20.1); Calc. Creatinine Clearance 65 mL/min (70-130); Calcium 8.9 mg/dL (7.8-10.44); Carbon Dioxide 25 mmol/L (23-31); Chloride 100 mmol/L (98-107); Glucose 93 mg/dL (83-110); Potassium 3.8 mmol/L (3.5-5.1); Sodium 137 mmol/L (136-145)
[2020-10-05] MEDS: Levothyroxine Sodium 125 MCG TAB PO SCH (06:05)
[2020-10-05] MEDS ORDERED: Furosemide 40 MG TAB PO SCH (07:30)
[2020-10-05] MEDS: Sucralfate 1 GM TAB PO SCH ×2 (08:28→14:06)
[2020-10-05] MEDS: Calcium Carbonate 500 MG TAB PO SCH (08:29)
[2020-10-05] MEDS: Metoprolol Tartrate 50 MG TAB PO SCH (08:29)
[2020-10-05] MEDS: Multivit, Therapeutic 1 TAB PO SCH (08:29)
[2020-10-05] MEDS: Potassium Chloride 20 MEQ TAB PO SCH ×3 (08:30→15:57)
[2020-10-05] MEDS: Docusate 100 MG CAP PO SCH (08:30)
[2020-10-05] MEDS: Amiodarone 200 MG TAB PO SCH (08:30)
[2020-10-05] MEDS: Apixaban 5 MG TAB PO SCH (08:30)
--- NOTE | 2020-10-05 10:11 | PDOC.EP ---
- Subjective Date: 10/05/20 Time: 10:09 Interval History: Feeling great after her CV. - Review of Systems Constitutional: denies: chills, fever, malaise, sweats, weakness, other Respiratory: denies: cough, dry, hemoptysis, pleuritic pain, shortness of breath, SOB with excertion, sputum, wheezing, other Cardiology: denies: chest pain, edema, heart racing, light headedness, paroxysmal noc. dyspnea, orthopnea, palpitations, passing out, pleuritic pain, pressure, swelling, other Gastrointestinal: denies: abdominal pain, constipation, diarrhea, hematochezia, melena, nausea, vomitting, other Musculoskeletal: denies: unstable gait, falls, neck pain, shoulder pain, arm pain, hand pain, leg pain, foot pain, other Neurological: denies: headache, vision changes, other - Objective Allergies/Adverse Reactions: Allergies Allergy/AdvReac Type Severity Reaction Status Date / Time amlodipine Allergy Verified 09/27/20 15:26 Penicillins Allergy Verified 09/27/20 15:26 Tetracyclines Allergy Verified 09/27/20 15:26 Current Medications Acetaminophen (Acetaminophen 325 Mg Tab) 650 mg PO Q4H PRN PRN Reason: Headache/Fever/Mild Pain (1-3) Last Admin: 10/04/20 03:15 Dose: 650 mg Documented by: Amiodarone HCl (Amiodarone 200 Mg Tab) 400 mg PO BID [facility] Stop: 10/17/20 23:59 Last Admin: 10/05/20 08:30 Dose: 400 mg Documented by: Amiodarone HCl (Amiodarone 200 Mg Tab) 200 mg PO BID [facility] Stop: 10/31/20 23:59 Amiodarone HCl (Amiodarone 200 Mg Tab) 200 mg PO DAILY [facility] Apixaban (Apixaban 5 Mg Tab) 5 mg PO BID [facility] Last Admin: 10/05/20 08:30 Dose: 5 mg Documented by: Bisacodyl (Bisacodyl 5 Mg Tab) 10 mg PO DAILYPRN PRN PRN Reason: Constipation Calcium Carbonate (Calcium Carbonate 500 Mg Tab) 500 mg PO BID [facility] Last Admin: 10/05/20 08:29 Dose: 500 mg Documented by: Docusate Sodium (Docusate 100 Mg Cap) 100 mg PO BID [facility] Last Admin: 10/05/20 08:30 Dose: 100 mg Documented by: Furosemide (Furosemide 40 Mg Tab) 40 mg PO DAILY-AC [facility] Last Admin: 10/05/20 08:28 Dose: 40 mg Documented by: Ketorolac Tromethamine (Ketorolac Tromethamine 30 Mg/Ml Vial) 30 mg IVP Q6H PRN PRN Reason: Pain Stop: 10/08/20 12:50 Metoprolol Tartrate (Metoprolol Tartrate 50 Mg Tab) 75 mg PO BID [facility] Last Admin: 10/05/20 08:29 Dose: 75 mg Documented by: Multivitamins (Multivit, Therapeutic 1 Tab) 1 tab PO DAILY [facility] Last Admin: 10/05/20 08:29 Dose: 1 tab Documented by: Pantoprazole Sodium (Pantoprazole 40 Mg Tab) 40 mg PO DAILY [facility] Stop: 11/02/20 09:01 Last Admin: 10/05/20 08:29 Dose: 40 mg Documented by: Levothyroxine Sodium (125 Mcg Tab) 1 each PO 0500 [facility] Last Admin: 10/05/20 06:05 Dose: 1 each Documented by: Potassium Chloride (Potassium Chloride 20 Meq Tab) 20 meq PO TID [facility] Last Admin: 10/05/20 08:31 Dose: Not Given Documented by: Senna/Docusate Sodium (Senokot S 8.6-50 Mg Tab) 2 tab PO BIDPRN PRN PRN Reason: Constipation Last Admin: 10/02/20 20:33 Dose: 2 tab Documented by: Sodium Chloride (Flush - Normal Saline 10 Ml Syringe) 10 ml IVF Q12HR [facility] Last Admin: 10/05/20 08:30 Dose: 10 ml Documented by: Sodium Chloride (Flush - Normal Saline 10 Ml Syringe) 10 ml IVF PRN PRN PRN Reason: Saline Flush Sucralfate (Sucralfate 1 Gm Tab) 1 gm PO ACHS [facility] Stop: 10/17/20 11:31 Last Admin: 10/05/20 08:28 Dose: 1 gm Documented by: Throat Lozenges (Cepastat Lozenges 1 Lynn) 1 lynn PO Q2H PRN PRN Reason: Sore Throat Last Admin: 10/03/20 09:45 Dose: 1 lynn Documented by: Vital Signs & Weight: Vital Signs Temp Pulse Resp BP Pulse Ox 10/05/20 03:50 97.1 F L 71 18 154/85 H 95 10/05/20 00:05 73 136/76 Weight 192 lb I/O: I/O 10/04/20 10/05/20 10/06/20 06:59 06:59 06:59 Intake Total 1644.4 1843.5 Output Total 2850 800 Balance -1205.6 1043.5 - Quality Measures Condition: Atrial Fibrillation/Flutter (hx or current) CV meds: Eliquis: Yes - Physical Exam General: alert & oriented x3, appears well HEENT: normocephaly Neck: no JVD/HJR Cardiology: regular rate and rhythm, no murmur Lungs: normal breath sounds Neurology: grossly intact Abdomen: unremarkable, soft, non-tender Extremities: warm Skin: groin sites stable Musculoskeletal: no pain - Chadsvasc Risk factors Congestive heart failure: 1 Hypertension: 1 Age 65-74: 1 Female: 1 Risk Score: 4 - Labs Result Diagrams: 10/04/20 04:03 10/05/20 03:52 - EKG Interpretation EKG Method: 12 Lead (QTC 464ms) EKG shows: Sinus rhythm ([id number]) - Assessment/Plan Assessment/Plan: Ms. Tellez is a pleasant 74-year-old woman with a history of systolic/diastolic heart failure and atrial fibrillation with rapid rates. Atrial fibrillation has not responded well to Multaq. Her heart failure is clearely worsened hence the persistent atrial fibrillation with rapid rates. 1. Acute worsening systolic congestive heart failure. a. History of reduced LVEF of 40-45% on echo 09/13/2020 and 45-50% on echo September 28, 2020, moderate MR, moderate to severe TR, mild biatrial enlargement. b. Current admission for heart failure exacerbation, suctioning diuresed by today. 2. Persistent atrial fibrillation. a. DEX-guided cardioversion 09/13/2020 with Multaq use, unsuccessful, converted back to sinus rhythm. b. Atrial fibrillation with rapid ventricular rates on admission. c. 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 Postop recurrent atrial flutter requiring amiodarone loading. CV 10/04/20 in SR 3. History of normal nuclear stress test in January 2019. 4. Hypertension. 5. Hypothyroidism. 10/02/20 S/P PVAI/PW and basal LA isolation. LA septum ablation(39min) POD#1. No acute complications noted. Recurrent atrial flutter with RVR noted this am requiring IV dilt but insufficient rate control. CV 10/04/[address] Goldman. Changed from IV amiodarone to PO taper yesterday: Amiodarone 400mg BID for a week then taper gradually to 200 over 2 weeks. - in SR. Feeling great today. Protonix and carafate for Chest discomfort which may be GI/post ablation discomfort. Continue for 14 days post ablation. Elevated CHADS-VASc score with her heart failure, CHF, hypertension, and age and gender at 6, on Eliquis therapy H/O Elevated liver enzymes, likely congestion related. Monitor on amiodarone. Stable for discharge. Eliquis, PO Amio taper; PRN lasix/K, Protonix and carafa te as above on D/C. Will see her back in 6 weeks in office.
--- NOTE | 2020-10-05 12:32 | EKG ---
Test Reason : S/P CARDIOVERSION Blood Pressure : / mmHG Vent. Rate : 080 BPM Atrial Rate : 080 BPM P-R Int : 200 ms QRS Dur : 074 ms QT Int : 392 ms P-R-T Axes : 087 075 081 degrees QTc Int : 452 ms Normal sinus rhythm Poor R wave progression Abnormal ECG Confirmed by WILBER DONOVAN ([id number]) on 10/05/2020 12:31:34 PM Referred By: MAYUR Confirmed By:WILBER DONOVAN
--- NOTE | 2020-10-05 12:42 | EKG ---
Test Reason : Blood Pressure : / mmHG Vent. Rate : 073 BPM Atrial Rate : 073 BPM P-R Int : 196 ms QRS Dur : 076 ms QT Int : 422 ms P-R-T Axes : 048 073 077 degrees QTc Int : 464 ms Normal sinus rhythm Nonspecific T wave abnormality Abnormal ECG Confirmed by WILBER DONOVAN ([id number]) on 10/05/2020 12:41:46 PM Referred By: DESTIN Confirmed By:WILBER DONOVAN
[2020-10-05 13:54] VITALS: TEMP 98
--- NOTE | 2020-10-05 14:22 | PDOC.DS.DS ---
Provider - Provider Date of Admission: 09/27/20 12:41 Date of Discharge: 10/05/20 Admitting Provider: Warren Awan MD Consultations: Cardiology (Dr. Goldman), Other (Electrophysiology: Dr. Rucker) Primary Care Physician: Kathy Pedroza MD Course - Hospital Course Hospital Course: Discharge diagnosis: 1. Atrial fibrillation with rapid ventricular response 2. Acute on chronic combined systolic and diastolic heart failure NYHA class II I 3. Abnormal liver function tests 4. Radiofrequency ablation during this hospitalization 5. Atrial flutter Hospital course: Patient is a pleasant 72-year-old lady who was admitted to the hospital on September 27, 2020 for atrial fibrillation with rapid ventricular response. She was seen by cardiology and electrophysiology services. She was also found to be in congestive heart failure exacerbation. She received intravenous diuretics. She was started on amiodarone. On October 01 she underwent PV AI/PW and basal LA isolation as well as LA septum ablation. She had recurrence of atrial flutter on October 02 and underwent cardioversion. She was in normal sinus rh ythm on the day of discharge. Many thanks for allowing me to participate in your patient's care. Please feel free to contact me with any questions or concerns. Discharge destination: Home Total amount of time spent coordinating this discharge: 22 minutes - Labs Lab Results: 10/04/20 04:03 10/05/20 03:52 Abnormal Lab Results - Last 48 hrs 10/04/20 04:03: BUN 23 H 10/04/20 04:03: Monocytes % 11.1 H, Neutrophils # 6.6 H, Monocytes # 1.2 H 10/05/20 03:52: BUN 23 H - Physical Exam Vitals: Vital Signs (12 hours) Temp Pulse Resp BP Pulse Ox 10/05/20 08:20 98.0 F 78 16 137/82 97 10/05/20 03:50 97.1 F L 71 18 154/85 H 95 Weight Weight 192 lb Physical Exam: The patient was seen and examined on the day of discharge. Patient denies chest pain or shortness of breath. Vital signs are stable. S1 and S2 are heard. Lungs are clear to auscultation bilaterally. Plan - Discharge Medications Home Medications: Medication Instructions Recorded Confirmed Type Levothyroxine Sodium [Levoxyl] 125 mcg PO DAILY 01/01/19 09/27/20 History Apixaban [Eliquis] 5 mg PO BID #60 tab 01/04/19 09/27/20 Rx Calcium Carbonate [Calcium] 1 tab PO BID 09/12/20 09/27/20 History Furosemide [Lasix] 40 mg PO DAILY 09/12/20 09/27/20 History Multivitamin [Multi-Vitamin Daily] 1 tab PO DAILY 09/12/20 09/27/20 History Potassium Chloride [Klor-Con M20] 20 meq PO DAILY 09/12/20 09/27/20 History Digoxin [Lanoxin] 0.125 mg PO DAILY 09/27/20 09/27/20 History Allergies: amlodipine Allergy (Verified 09/27/20 15:26) Penicillins Allergy (Verified 09/27/20 15:26) Tetracyclines Allergy (Verified 09/27/20 15:26) - Follow up Plan Referrals: Kathy Pedroza MD [Primary Care Provider] - 7 Days (Please call the office and schedule a follow up appointment) Miguel Goldman MD [Active] - 2-3 Weeks (Please call the office and schedule a follow up appointment) Dean Rucker MD [Chucker] - 10 Days (Please call the office and schedule a follow up appointment) Disposition: HOME Quality - Care Measures CORE MEASURES:: N/A
[2020-10-05 14:46] VITALS: BP 121/74
[2020-10-18] MEDS ORDERED: Amiodarone 200 MG TAB PO SCH (09:00)
[2020-11-01] MEDS ORDERED: Amiodarone 200 MG TAB PO SCH (09:00)
== END 2020-10-05 16:30 | disposition home or self-care (01) | DRG 273 ==
LOC: ERS 08:36 → ERHOLD 12:41 → 2NO 18:44
PROVIDERS: ADMIT Internal Medicine Cardiovascular Disease; ATTEND Internal Medicine Cardiovascular Disease
PROC: 4A023FZ Measurement of Cardiac Rhythm, Percutaneous Approach (ICD-10-PCS; principal; 2020-10-01)
PROC: 02583ZZ Destruction of Conduction Mechanism, Percutaneous Approach (ICD-10-PCS; 2020-10-01)
PROC: 4A0234Z Measurement of Cardiac Electrical Activity, Percutaneous Approach (ICD-10-PCS; 2020-10-01)
DX: I48.0 Paroxysmal atrial fibrillation (principal); I50.43 Acute on chronic combined systolic (congestive) and diastolic (congestive) heart failure; I48.92 Unspecified atrial flutter; I48.19 Other persistent atrial fibrillation; I11.0 Hypertensive heart disease with heart failure; E03.9 Hypothyroidism, unspecified; Z86.73 Personal history of transient ischemic attack (TIA), and cerebral infarction without residual deficits; Z79.01 Long term (current) use of anticoagulants; Z88.0 Allergy status to penicillin; Z88.8 Allergy status to other drugs, medicaments and biological substances
CPT/HCPCS: 36415; 71045; 71046; 76705; 76942; 80048; 80053; 80162; 82550; 83880; 84443; 84484; 85025; 85347; 87635; 92960; 93005; 93010; 93306; 93613; 93622; 93623; 93656; 93657; 93662; 96365; 96366; 96375; 96376; C1732; C1759; C9113; J0282; J1100; J1644; J1885; J1940; J2370; J2405; J2704; J2765; J3010; J3490; J7070; U0003; U0005

== ENCOUNTER → 2021-05-27 | Day surgery (SDC) | payer MEDICARE, BC ==
[2021-05-24 11:05] VITALS: BMI 25.8
[~2021-05-27] MED LIST changes: +Lidocaine 1% PF 5 ML VIAL ONE; -PROPOFOL 20 ML ONE; +PROPOFOL 200 MG/20 ML VIAL ONE
== END ==
LOC: SDC 07:04
PROVIDERS: ATTEND Internal Medicine Cardiovascular Disease
PROC: 5A2204Z Restoration of Cardiac Rhythm, Single (ICD-10-PCS; principal; 2021-05-27)
DX: I48.19 Other persistent atrial fibrillation (principal); I42.8 Other cardiomyopathies; R00.1 Bradycardia, unspecified; I11.0 Hypertensive heart disease with heart failure; I50.20 Unspecified systolic (congestive) heart failure; I08.3 Combined rheumatic disorders of mitral, aortic and tricuspid valves; E03.9 Hypothyroidism, unspecified; I47.1 Supraventricular tachycardia; Z79.01 Long term (current) use of anticoagulants; Z79.899 Other long term (current) drug therapy; Z88.0 Allergy status to penicillin; Z88.1 Allergy status to other antibiotic agents; Z88.8 Allergy status to other drugs, medicaments and biological substances
CPT/HCPCS: 92960; J2704

== ENCOUNTER 2021-06-14 08:41 | Outpatient (CLI) | payer MEDICARE, BC ==
[2021-06-14 11:12] LABS: Anion Gap 14 mmol/L (10-20); BUN (Urea Nitrogen) 26 mg/dL (9.8-20.1); Calc. Creatinine Clearance 0 mL/min (70-130); Calcium 9.7 mg/dL (7.8-10.44); Carbon Dioxide 28 mmol/L (23-31); Chloride 105 mmol/L (98-107); Glucose 85 mg/dL (83-110); Hemoglobin 13.3 g/dL (12.0-15.5); Mean Corpuscular HGB CONC 33.1 g/dL (32.0-36.0); Mean Corpuscular Hemoglobin 30.6 pg (27.0-33.0); Mean Corpuscular Volume 92.4 fl (81.6-98.3); Mean Platelet Volume 11.6 fl (7.4-10.4); Platelet Count 201 10x3/uL (150-450); Potassium 4.7 mmol/L (3.5-5.1); RBC Distribution Width 13.9 % (11.5-14.5); Red Blood Cell (RBC) Count 4.35 10x6/uL (3.90-5.03); Sodium 142 mmol/L (136-145); White Blood Cell (WBC) Count 5.8 10x3/uL (3.5-10.5)
[2021-06-14 11:41] LABS: PTT 28.9 sec (22.0-33.0); Prothrombin Time 11.2 sec (9.5-12.1)
[2021-06-14 17:45] LABS: SARS-CoV-2 PCR by NAA Not Detected (NotDetected)
== END 2021-06-14 08:42 | disposition home or self-care (01) ==
LOC: LABBT 08:41
PROVIDERS: ATTEND Internal Medicine Cardiovascular Disease
DX: Z01.812 Encounter for preprocedural laboratory examination (principal); Z51.81 Encounter for therapeutic drug level monitoring; I48.91 Unspecified atrial fibrillation; I51.9 Heart disease, unspecified; Z79.01 Long term (current) use of anticoagulants; Z20.822 Contact with and (suspected) exposure to COVID-19
CPT/HCPCS: 80048; 85027; 85610; 85730; U0003; U0005

== ENCOUNTER 2021-06-19 08:43 | Day surgery (SDC) | payer MEDICARE, BC ==
[2021-06-18 10:13] VITALS: BMI 25.5
[2021-06-19] MEDS ORDERED: Heparin 10,000 UNITS/ 10 ML VIAL ONE (09:50)
[2021-06-19] MEDS ORDERED: Heparin 25,000 units/D5W 500 ML ONE (09:50)
== END 2021-06-19 11:35 | disposition home or self-care (01) ==
LOC: CCL 08:43
PROVIDERS: ATTEND Internal Medicine Cardiovascular Disease
DX: I48.19 Other persistent atrial fibrillation (principal); I48.4 Atypical atrial flutter; H57.89 Other specified disorders of eye and adnexa; Z53.8 Procedure and treatment not carried out for other reasons; Z79.01 Long term (current) use of anticoagulants; Z79.899 Other long term (current) drug therapy; Z88.0 Allergy status to penicillin; Z88.1 Allergy status to other antibiotic agents; Z88.8 Allergy status to other drugs, medicaments and biological substances
CPT/HCPCS: J1644

== ENCOUNTER 2021-08-07 08:51 | Outpatient (CLI) | payer MEDICARE, BC ==
[2021-08-07 10:32] LABS: Hemoglobin 13.7 g/dL (12.0-15.5); Mean Corpuscular HGB CONC 32.5 g/dL (32.0-36.0); Mean Corpuscular Hemoglobin 30.1 pg (27.0-33.0); Mean Corpuscular Volume 92.7 fl (81.6-98.3); Mean Platelet Volume 11.5 fl (7.4-10.4); Platelet Count 220 10x3/uL (150-450); RBC Distribution Width 13.6 % (11.5-14.5); Red Blood Cell (RBC) Count 4.55 10x6/uL (3.90-5.03); White Blood Cell (WBC) Count 5.7 10x3/uL (3.5-10.5)
[2021-08-07 10:40] LABS: PTT 30.2 sec (22.0-33.0); Prothrombin Time 11.1 sec (9.5-12.1)
[2021-08-07 10:46] LABS: ALT (SGPT) 25 U/L (8-55); AST (SGOT) 23 U/L (5-34); Albumin 4.4 g/dL (3.4-4.8); Alkaline Phosphatase 126 U/L (40-110); Anion Gap 13 mmol/L (10-20); BUN (Urea Nitrogen) 16 mg/dL (9.8-20.1); Calc. Creatinine Clearance 0 mL/min (70-130); Calcium 9.2 mg/dL (7.8-10.44); Carbon Dioxide 27 mmol/L (23-31); Cardiac Risk 3.4 (Less than 4.5); Chloride 103 mmol/L (98-107); Cholesterol 218 mg/dl (< 200 Desired); Globulin 2.7 g/dL (2.4-3.5); Glucose 92 mg/dL (83-110); HDL Cholesterol 65 mg/dL (>60 Neg Risk); LDL Cholesterol, Calculated 142 mg/dL; Potassium 3.9 mmol/L (3.5-5.1); Protein, Total 7.1 g/dL (5.8-8.1); Sodium 139 mmol/L (136-145); Triglycerides 53 mg/dL (Less than 150)
[2021-08-07 17:22] LABS: SARS-CoV-2 PCR by NAA Not Detected (NotDetected)
== END 2021-08-07 08:52 | disposition home or self-care (01) ==
LOC: LABBT 08:51
PROVIDERS: ATTEND Internal Medicine Nephrology
DX: Z01.812 Encounter for preprocedural laboratory examination (principal); I48.19 Other persistent atrial fibrillation; Z20.822 Contact with and (suspected) exposure to COVID-19
CPT/HCPCS: 80053; 80061; 85027; 85610; 85730; U0003; U0005

== ENCOUNTER 2021-08-12 08:30 | Inpatient (IN) | payer MEDICARE, BC ==
[2021-08-12] MEDS ORDERED: Heparin 25,000 units/D5W 500 ML ONE (09:59)
[2021-08-12] MEDS ORDERED: Protamine Sulfate 50 MG/5 ML VIAL ONE (09:59)
[2021-08-12] MEDS ORDERED: Heparin 10,000 UNITS/ 10 ML VIAL ONE ×2 (09:59→14:18)
[2021-08-12] MEDS ORDERED: Fentanyl 250 MCG/5 ML VIAL ONE (11:04)
[2021-08-12] MEDS ORDERED: PROPOFOL 200 MG/20 ML VIAL ONE (11:10)
[2021-08-12] MEDS ORDERED: Rocuronium Bromide 10 MG/ML (10ML VIAL) ONE (11:10)
[2021-08-12] MEDS ORDERED: Dexamethasone 20 MG/5 ML VIAL ONE (11:10)
[2021-08-12] MEDS ORDERED: Ondansetron PF 4 MG/2 ML Vial ONE ×2 (11:10→12:03)
[2021-08-12] MEDS ORDERED: PHENYLEPHRINE-NS 100 MCG/ML 10 ML SYRINGE ONE (11:10)
[2021-08-12] MEDS ORDERED: Lidocaine 1% PF 5 ML VIAL ONE (11:10)
[2021-08-12] MEDS ORDERED: Succinylcholine 200 MG/10 ml SYRINGE FS ONE (11:10)
[2021-08-12] MEDS ORDERED: Phenylephrine 10 MG/ML VIAL ONE (12:01)
[2021-08-12] MEDS ORDERED: Dexamethasone 4 mg/ml Vial ONE (12:03)
[2021-08-12] MEDS ORDERED: Isoproterenol 0.2 MG/1 ML AMP ONE (12:14)
[2021-08-12] MEDS ORDERED: Amiodarone 150 MG/3 ML VIAL ONE ×2 (14:48→14:57)
[2021-08-12] MEDS ORDERED: Atropine Sulfate 1 mg/1 ml Vial ONE (15:16)
[2021-08-12] MEDS ORDERED: Acetaminophen/Codeine 30-300mg Tablet PO PRN (19:27)
[2021-08-12] MEDS ORDERED: HYDROcodone/Acetaminophen 5/325 mg Tablet PO PRN ×2 (19:30→19:31)
[2021-08-12] MEDS ORDERED: Ketorolac Tromethamine 30 MG/ML VIAL IVP PRN (19:44)
[2021-08-12] MEDS ORDERED: Atropine Sulfate 1 mg/1 ml Vial IVP PRN (19:45)
[2021-08-12] MEDS ORDERED: DOPamine 400 MG/D5W 250 ML 250 ML IVPB PRN (19:48)
[2021-08-12] MEDS ORDERED: Ondansetron HCl/PF 4 MG/2 ML Vial IVP PRN (20:15)
[2021-08-12] MEDS ORDERED: Promethazine HCl 25 MG/ML VIAL IM/IV PRN (20:15)
[2021-08-12] MEDS ORDERED: Morphine 4 MG/ML VIAL SLOW IVP PRN (20:47)
[2021-08-12] MEDS ORDERED: Heparin 10,000 UNITS/ 10 ML VIAL SLOW IVP SCH (21:00)
[2021-08-12] MEDS ORDERED: Heparin 25,000 units/D5W 500 ML IV SCH (21:00)
[2021-08-12] MEDS: Acetaminophen/Codeine 30-300mg Tablet PO PRN (21:11)
[2021-08-12] MEDS: Calcium Carbonate 500 MG ChewTAB PO SCH (21:11)
[2021-08-12] MEDS: Magnesium Oxide 250 MG TAB PO SCH (21:30)
[2021-08-13] MEDS ORDERED: LEVOTHYROXINE PO SCH (06:00)
[2021-08-13] MEDS: Calcium Carbonate 500 MG ChewTAB PO SCH ×2 (09:53→20:03)
[2021-08-13] MEDS: Multivit, Therapeutic 1 TAB PO SCH (09:54)
[2021-08-13] MEDS: Potassium Chloride 20 MEQ TAB PO SCH (09:54)
[2021-08-13] MEDS: Furosemide 20 MG TAB PO SCH (09:54)
[2021-08-13] MEDS: Magnesium Oxide 250 MG TAB PO SCH ×2 (09:54→20:03)
[2021-08-13 12:43] LABS: #Lymphocytes 2.3 thou/uL (1.20-3.40); #Monocytes 1.3 thou/uL (0.11-0.59); #Neutrophils 7.8 thou/uL (1.40-6.50); %Basophils 0.1 % (0.0-1.0); %Eosinophils 0.3 % (0.0-10.0); %Lymphocytes 20.1 % (21.0-51.0); %Monocytes 11.2 % (0.0-10.0); %Neutrophils 68.2 % (42.0-75.0); Band 4 % (5-11); Lymphocytes 21 % (21-51); MDiff Complete? YES; Mean Corpuscular HGB CONC 31.7 g/dL (32.0-36.0); Mean Corpuscular Hemoglobin 31.5 pg (27.0-31.0); Mean Corpuscular Volume 99.2 fL (78.0-98.0); Mean Platelet Volume 8.5 fL (7.4-10.4); Monocytes 9 % (0-10); Neutrophil 66 % (42-75); Platelet Count 169 thou/uL (130-400); Platelet Morphology Comment Appears Adequate; RBC Distribution Width 12.7 % (11.5-14.5); RBC Morphology Normal; Red Blood Cell (RBC) Count 4.13 mill/uL (4.20-5.40); White Blood Cell (WBC) Count 11.5 thou/uL (4.8-10.8)
[2021-08-13 13:21] LABS: Phosphorus 3.3 mg/dL (2.3-4.7)
[2021-08-13 13:27] LABS: ALT (SGPT) 24 U/L (8-55); AST (SGOT) 61 U/L (5-34); Albumin 3.6 g/dL (3.4-4.8); Alkaline Phosphatase 94 U/L (40-110); Anion Gap 10 mmol/L (10-20); BUN (Urea Nitrogen) 15 mg/dL (9.8-20.1); Calc. Creatinine Clearance 83 mL/min (70-130); Calcium 9.4 mg/dL (7.8-10.44); Carbon Dioxide 17 mmol/L (23-31); Chloride 103 mmol/L (98-107); Globulin 2.9 g/dL (2.4-3.5); Glucose 100 mg/dL (83-110); Magnesium 1.9 mg/dL (1.6-2.6); Potassium 3.1 mmol/L (3.5-5.1); Protein, Total 6.5 g/dL (5.8-8.1); Sodium 127 mmol/L (136-145)
[2021-08-13] MEDS ORDERED: Clindamycin/D5W 600 mg/50 ml Premix Bag ONE (15:17)
[2021-08-13] MEDS ORDERED: Levofloxacin 500 mg/D5W 100 ml Premix Bag ONE (15:17)
[2021-08-13] MEDS ORDERED: Lidocaine 1% (PF) 30 ML VIAL ONE (15:17)
[2021-08-13] MEDS ORDERED: Midazolam HCl 2 mg/2 ml Vial ONE (15:53)
[2021-08-13] MEDS ORDERED: Fentanyl 100 MCG/2 ML VIAL ONE (15:53)
[2021-08-13] MEDS ORDERED: Potassium Chloride 20 MEQ TAB PO SCH (18:00)
[2021-08-14 03:52] LABS: #Lymphocytes 1.5 thou/uL (1.20-3.40); #Monocytes 0.8 thou/uL (0.11-0.59); #Neutrophils 4.8 thou/uL (1.40-6.50); %Basophils 0.4 % (0.0-1.0); %Eosinophils 0.3 % (0.0-10.0); %Lymphocytes 20.5 % (21.0-51.0); %Monocytes 11.2 % (0.0-10.0); %Neutrophils 67.6 % (42.0-75.0); Hemoglobin 11.3 g/dL (12.0-16.0); Mean Corpuscular HGB CONC 33.9 g/dL (32.0-36.0); Mean Corpuscular Hemoglobin 32.1 pg (27.0-31.0); Mean Platelet Volume 8.6 fL (7.4-10.4); Platelet Count 148 thou/uL (130-400); RBC Distribution Width 12.6 % (11.5-14.5); Red Blood Cell (RBC) Count 3.51 mill/uL (4.20-5.40); White Blood Cell (WBC) Count 7.1 thou/uL (4.8-10.8)
[2021-08-14 04:07] LABS: ALT (SGPT) 24 U/L (8-55); AST (SGOT) 51 U/L (5-34); Albumin 3.4 g/dL (3.4-4.8); Alkaline Phosphatase 84 U/L (40-110); Anion Gap 9 mmol/L (10-20); BUN (Urea Nitrogen) 19 mg/dL (9.8-20.1); Calc. Creatinine Clearance 82 mL/min (70-130); Carbon Dioxide 28 mmol/L (23-31); Chloride 105 mmol/L (98-107); Globulin 2.5 g/dL (2.4-3.5); Glucose 109 mg/dL (83-110); Potassium 4.2 mmol/L (3.5-5.1); Protein, Total 5.9 g/dL (5.8-8.1); Sodium 138 mmol/L (136-145)
[2021-08-14] MEDS: LEVOXYL PO SCH ×2 (05:19→08:01)
[2021-08-14] MEDS: Acetaminophen/Codeine 30-300mg Tablet PO PRN (05:21)
[2021-08-14 06:15] VITALS: BMI 25.6
[2021-08-14] MEDS: Multivit, Therapeutic 1 TAB PO SCH (08:01)
[2021-08-14] MEDS: Calcium Carbonate 500 MG ChewTAB PO SCH (08:01)
[2021-08-14] MEDS: Potassium Chloride 20 MEQ TAB PO SCH (08:01)
[2021-08-14] MEDS: Furosemide 20 MG TAB PO SCH (08:01)
[2021-08-14] MEDS: Magnesium Oxide 250 MG TAB PO SCH (08:01)
[2021-08-14 08:07] VITALS: TEMP 98
[2021-08-14] MEDS ORDERED: Apixaban 2.5 MG TAB PO SCH (09:00)
[2021-08-14] MEDS ORDERED: Potassium Chloride 20 MEQ TAB PO PRN (09:38)
[2021-08-14] MEDS ORDERED: Clindamycin 150 MG CAP PO SCH (09:45)
[2021-08-14] MEDS ORDERED: Sucralfate 1 GM TAB PO SCH (11:30)
== END 2021-08-14 13:30 | disposition home or self-care (01) | DRG 243 ==
LOC: CCL 08:30 → CCU 19:22
PROVIDERS: ADMIT Internal Medicine Cardiovascular Disease; ATTEND Internal Medicine Cardiovascular Disease
PROC: 4A023FZ Measurement of Cardiac Rhythm, Percutaneous Approach (ICD-10-PCS; principal; 2021-08-12)
PROC: 02583ZZ Destruction of Conduction Mechanism, Percutaneous Approach (ICD-10-PCS; 2021-08-12)
PROC: 4A0234Z Measurement of Cardiac Electrical Activity, Percutaneous Approach (ICD-10-PCS; 2021-08-12)
PROC: 02K83ZZ Map Conduction Mechanism, Percutaneous Approach (ICD-10-PCS; 2021-08-12)
PROC: 0JH606Z Insertion of Pacemaker, Dual Chamber into Chest Subcutaneous Tissue and Fascia, Open Approach (ICD-10-PCS; 2021-08-13)
PROC: 02HK3JZ Insertion of Pacemaker Lead into Right Ventricle, Percutaneous Approach (ICD-10-PCS; 2021-08-13)
PROC: 02H63JZ Insertion of Pacemaker Lead into Right Atrium, Percutaneous Approach (ICD-10-PCS; 2021-08-13)
DX: I48.19 Other persistent atrial fibrillation (principal); I50.32 Chronic diastolic (congestive) heart failure; I48.4 Atypical atrial flutter; I11.0 Hypertensive heart disease with heart failure; E03.9 Hypothyroidism, unspecified; G43.909 Migraine, unspecified, not intractable, without status migrainosus; I49.5 Sick sinus syndrome; Z79.899 Other long term (current) drug therapy; Z79.890 Hormone replacement therapy; Z79.01 Long term (current) use of anticoagulants
CPT/HCPCS: 33208; 33210; 36415; 71045; 80053; 83735; 84100; 85025; 85347; 85730; 93005; 93010; 93613; 93623; 93655; 93656; 93657; 93662; 94760; 99152; 99153; C1732; C1759; C1776; C1785; C1884; C1898; J0282; J0461; J1100; J1644; J1956; J2001; J2250; J2370; J2405; J2704; J2720; J3010; J3370; J3490

== ENCOUNTER 2021-09-29 12:56 | Inpatient (IN) | payer MEDICARE, BC ==
[2021-09-29 13:36] LABS: #Basophils 0.1 thou/uL (0.0-0.2); #Eosinphils 0.1 thou/uL (0.0-0.7); #Lymphocytes 0.9 thou/uL (1.20-3.40); #Monocytes 0.5 thou/uL (0.11-0.59); #Neutrophils 5.8 thou/uL (1.40-6.50); %Basophils 0.7 % (0.0-1.0); %Monocytes 7.1 % (0.0-10.0); %Neutrophils 79.3 % (42.0-75.0); Hemoglobin 12.6 g/dL (12.0-16.0); Mean Corpuscular HGB CONC 33.1 g/dL (32.0-36.0); Mean Corpuscular Hemoglobin 31.3 pg (27.0-31.0); Mean Corpuscular Volume 94.5 fL (78.0-98.0); Mean Platelet Volume 8.5 fL (7.4-10.4); Platelet Count 206 thou/uL (130-400); RBC Distribution Width 12.4 % (11.5-14.5); Red Blood Cell (RBC) Count 4.03 mill/uL (4.20-5.40); White Blood Cell (WBC) Count 7.3 thou/uL (4.8-10.8)
[2021-09-29 13:51] LABS: Phosphorus 2.5 mg/dL (2.3-4.7)
[2021-09-29 13:53] LABS: ALT (SGPT) 27 U/L (8-55); AST (SGOT) 27 U/L (5-34); Alkaline Phosphatase 108 U/L (40-110); Anion Gap 19 mmol/L (10-20); BUN (Urea Nitrogen) 14 mg/dL (9.8-20.1); Bilirubin, Total 0.8 mg/dL (0.2-1.2); Calc. Creatinine Clearance 0 mL/min (70-130); Calcium 8.7 mg/dL (7.8-10.44); Carbon Dioxide 19 mmol/L (23-31); Chloride 106 mmol/L (98-107); Glucose 145 mg/dL (83-110); Magnesium 1.7 mg/dL (1.6-2.6); Potassium 3.5 mmol/L (3.5-5.1); Sodium 140 mmol/L (136-145)
[2021-09-29] MEDS ORDERED: Diltiazem 125 MG/25 ML ONE (14:10)
[2021-09-29 14:15] LABS: CKMB 4.8 ng/mL (0-6.6)
[2021-09-29 15:42] LABS: Bilirubin Negative (Negative); Blood, Urine Negative (Negative); Clarity Clear (Clear); Glucose, Urine (Dipstick) Normal (Negative); Ketone, Urine Negative (Negative); Leukocyte Negative Leu/uL (Negative); Nitrite Negative (Negative); Protein, Urine (Dipstick) Negative (Neg-Trace); Specific Gravity, Urine 1.006 (1.002-1.036); Urobilinogen Normal mg/dL (Less than 2)
[2021-09-29] MEDS ORDERED: Ondansetron ODT 4 MG TAB PO PRN (15:46)
[2021-09-29] MEDS ORDERED: Acetaminophen 325 MG TAB PO PRN (15:46)
[2021-09-29] MEDS ORDERED: Aspirin 325 MG TAB ONE (16:11)
[2021-09-29 16:58] LABS: Troponin I 1.664 ng/mL (< 0.028)
[2021-09-29 17:47] LABS: SARS-CoV-2 NAA Rapid Test Not Detected (NotDetected)
[2021-09-29 20:29] LABS: Troponin I 2.386 ng/mL (< 0.028)
[2021-09-29] MEDS ORDERED: Apixaban 5 MG TAB PO SCH (21:00)
[2021-09-29] MEDS: Magnesium Oxide 250 MG TAB PO SCH (21:28)
[2021-09-29] MEDS ORDERED: Enoxaparin Sodium 80 MG/0.8 ML SYRINGE SC SCH ×2 (21:30→22:15)
[2021-09-29 22:11] VITALS: BMI 25.0
[2021-09-30] MEDS ORDERED: Levothyroxine Sodium 112 MCG TAB PO SCH (06:00)
[2021-09-30] MEDS ORDERED: LEVOXYL PO SCH (06:00)
[2021-09-30] MEDS ORDERED: Furosemide 20 MG TAB PO PRN (07:31)
[2021-09-30] MEDS ORDERED: Potassium Chloride 20 MEQ TAB PO PRN (07:31)
[2021-09-30] MEDS ORDERED: Magnesium Oxide 250 MG TAB PO SCH (09:00)
[2021-09-30] MEDS ORDERED: Enoxaparin Sodium 80 MG/0.8 ML SYRINGE SC SCH (09:00)
[2021-09-30] MEDS: Magnesium Oxide 250 MG TAB PO SCH ×2 (09:35→22:53)
[2021-09-30] MEDS: Multivit, Therapeutic 1 TAB PO SCH (09:36)
[2021-09-30] MEDS: Flecainide 50 MG TAB PO SCH ×2 (09:36→22:22)
[2021-09-30] MEDS: Apixaban 5 MG TAB PO SCH ×2 (09:36→22:22)
[2021-09-30 11:09] LABS: #Eosinphils 0.1 thou/uL (0.0-0.7); #Lymphocytes 1.5 thou/uL (1.20-3.40); #Monocytes 0.5 thou/uL (0.11-0.59); #Neutrophils 3.2 thou/uL (1.40-6.50); %Basophils 0.4 % (0.0-1.0); %Eosinophils 2.6 % (0.0-10.0); %Lymphocytes 27.5 % (21.0-51.0); %Monocytes 10.1 % (0.0-10.0); %Neutrophils 59.3 % (42.0-75.0); Hemoglobin 11.7 g/dL (12.0-16.0); Mean Corpuscular Hemoglobin 30.1 pg (27.0-31.0); Mean Corpuscular Volume 93.9 fL (78.0-98.0); Mean Platelet Volume 8.5 fL (7.4-10.4); Platelet Count 205 thou/uL (130-400); RBC Distribution Width 12.3 % (11.5-14.5); Red Blood Cell (RBC) Count 3.89 mill/uL (4.20-5.40); White Blood Cell (WBC) Count 5.3 thou/uL (4.8-10.8)
[2021-09-30 11:28] LABS: Anion Gap 14 mmol/L (10-20); BUN (Urea Nitrogen) 15 mg/dL (9.8-20.1); Calc. Creatinine Clearance 84 mL/min (70-130); Calcium 9.3 mg/dL (7.8-10.44); Carbon Dioxide 26 mmol/L (23-31); Chloride 105 mmol/L (98-107); Glucose 89 mg/dL (83-110); Magnesium 1.9 mg/dL (1.6-2.6); Potassium 3.5 mmol/L (3.5-5.1); Sodium 141 mmol/L (136-145)
[2021-09-30] MEDS ORDERED: hydrALAZINE 10 MG TAB PO SCH (17:00)
[2021-10-01 06:25] LABS: #Basophils 0.1 thou/uL (0.0-0.2); #Eosinphils 0.3 thou/uL (0.0-0.7); #Lymphocytes 1.6 thou/uL (1.20-3.40); #Monocytes 0.5 thou/uL (0.11-0.59); #Neutrophils 2.1 thou/uL (1.40-6.50); %Basophils 1.1 % (0.0-1.0); %Eosinophils 6.2 % (0.0-10.0); %Lymphocytes 35.2 % (21.0-51.0); %Monocytes 11.6 % (0.0-10.0); %Neutrophils 45.8 % (42.0-75.0); Hemoglobin 12.2 g/dL (12.0-16.0); Mean Corpuscular HGB CONC 32.2 g/dL (32.0-36.0); Mean Corpuscular Hemoglobin 30.3 pg (27.0-31.0); Mean Corpuscular Volume 94.1 fL (78.0-98.0); Mean Platelet Volume 8.7 fL (7.4-10.4); Platelet Count 179 thou/uL (130-400); RBC Distribution Width 12.4 % (11.5-14.5); Red Blood Cell (RBC) Count 4.03 mill/uL (4.20-5.40); White Blood Cell (WBC) Count 4.6 thou/uL (4.8-10.8)
[2021-10-01 06:48] LABS: Anion Gap 13 mmol/L (10-20); BUN (Urea Nitrogen) 16 mg/dL (9.8-20.1); Calc. Creatinine Clearance 75 mL/min (70-130); Carbon Dioxide 26 mmol/L (23-31); Chloride 106 mmol/L (98-107); Glucose 88 mg/dL (83-110); Potassium 3.6 mmol/L (3.5-5.1); Sodium 141 mmol/L (136-145)
[2021-10-01] MEDS ORDERED: ADENOSINE 60 MG/20 ML VIAL ONE (11:00)
[2021-10-01] MEDS: Apixaban 5 MG TAB PO SCH (15:22)
[2021-10-01] MEDS: Flecainide 50 MG TAB PO SCH (15:22)
[2021-10-01] MEDS: Multivit, Therapeutic 1 TAB PO SCH (15:24)
[2021-10-01 15:59] VITALS: BP 177/81; TEMP 97.9
== END 2021-10-01 19:29 | disposition home or self-care (01) | DRG 281 ==
LOC: ERS 12:56 → ERHOLD 14:33 → NEURO 09-30 08:45
PROVIDERS: ADMIT Internal Medicine; ATTEND Internal Medicine
DX: I47.1 Supraventricular tachycardia (principal); I21.A1 Myocardial infarction type 2; I50.32 Chronic diastolic (congestive) heart failure; Z20.822 Contact with and (suspected) exposure to COVID-19; I11.0 Hypertensive heart disease with heart failure; E03.9 Hypothyroidism, unspecified; I48.92 Unspecified atrial flutter; E78.00 Pure hypercholesterolemia, unspecified; I48.19 Other persistent atrial fibrillation; Z95.0 Presence of cardiac pacemaker; Z88.8 Allergy status to other drugs, medicaments and biological substances; Z88.0 Allergy status to penicillin; Z86.73 Personal history of transient ischemic attack (TIA), and cerebral infarction without residual deficits; Z79.890 Hormone replacement therapy; Z79.01 Long term (current) use of anticoagulants; Z79.899 Other long term (current) drug therapy
CPT/HCPCS: 36415; 71045; 78452; 80048; 80053; 81003; 82553; 83735; 83880; 84100; 84443; 84484; 85025; 87086; 93005; 93017; A9500; U0002

== ENCOUNTER 2022-01-02 11:33 | Outpatient (CLI) | payer MEDICARE, BC ==
[2022-01-02] MEDS ORDERED: Magnevist 469MG/ML 20 ML VIAL ONE (15:17)
== END 2022-01-02 11:34 | disposition home or self-care (01) ==
LOC: MRI 11:33
PROVIDERS: ATTEND Internal Medicine Gastroenterology
DX: K86.2 Cyst of pancreas (principal); K21.9 Gastro-esophageal reflux disease without esophagitis; Z86.010 Personal history of colon polyps
CPT/HCPCS: 74183; A9579

== ENCOUNTER 2022-12-30 08:45 | Outpatient (CLI) | payer MEDICARE, BC | END 2022-12-30 08:46 | disposition home or self-care (01) | LOC: BICMAMMO 08:45 | PROVIDERS: ATTEND Internal Medicine | DX: Z12.31 Encounter for screening mammogram for malignant neoplasm of breast (principal) | CPT/HCPCS: 77063; 77067 ==

== ENCOUNTER 2023-01-05 09:54 | Outpatient (CLI) | payer MEDICARE, BC | END 2023-01-05 09:55 | disposition home or self-care (01) | LOC: RAD 09:54 | PROVIDERS: ATTEND Internal Medicine Gastroenterology | DX: Z01.818 Encounter for other preprocedural examination (principal); Z95.0 Presence of cardiac pacemaker; I51.7 Cardiomegaly | CPT/HCPCS: 71046 ==

== ENCOUNTER 2023-01-06 09:17 | Outpatient (CLI) | payer MEDICARE, BC ==
[~2023-01-06 09:17] MED LIST changes: -Lidocaine 1% PF 5 ML VIAL ONE; +Magnevist 469MG/ML 20 ML VIAL ONE; -PROPOFOL 200 MG/20 ML VIAL ONE
== END 2023-01-06 09:18 | disposition home or self-care (01) ==
LOC: MRI 09:17
PROVIDERS: ATTEND Internal Medicine Gastroenterology
DX: K86.2 Cyst of pancreas (principal)
CPT/HCPCS: 74183

== ENCOUNTER 2023-10-09 10:48 | Inpatient (IN) | payer MEDICARE, BC ==
[2023-10-09 11:27] LABS: #Basophils 0.1 thou/uL (0.0-0.2); #Eosinphils 0.1 thou/uL (0.0-0.7); #Monocytes 0.6 thou/uL (0.11-0.59); #Neutrophils 2.7 thou/uL (1.40-6.50); %Eosinophils 1.7 % (0.0-10.0); %Monocytes 10.5 % (0.0-10.0); %Neutrophils 45.6 % (42.0-75.0); Hematocrit 45.7 % (36.0-47.0); Hemoglobin 14.7 g/dL (12.0-16.0); Mean Corpuscular HGB CONC 32.2 g/dL (32.0-36.0); Mean Corpuscular Hemoglobin 30.8 pg (27.0-31.0); Mean Corpuscular Volume 95.8 fl (78.0-98.0); Mean Platelet Volume 11.1 fL (7.4-10.4); Platelet Count 214 10x3/uL (130-400); RBC Distribution Width 14.2 % (11.5-14.5); Red Blood Cell (RBC) Count 4.77 mill/uL (4.20-5.40); White Blood Cell (WBC) Count 5.8 10x3/uL (4.8-10.8)
[2023-10-09 11:53] LABS: ALT (SGPT) 20 U/L (8-55); AST (SGOT) 26 U/L (5-34); Albumin 4.2 g/dL (3.4-4.8); Alkaline Phosphatase 91 U/L (40-110); Anion Gap 12 mmol/L (10-20); BUN (Urea Nitrogen) 24 mg/dL (9.8-20.1); Bilirubin, Total 1.2 mg/dL (0.2-1.2); Calc. Creatinine Clearance 0 mL/min (70-130); Calcium 9.5 mg/dL (7.8-10.44); Carbon Dioxide 26 mmol/L (23-31); Chloride 106 mmol/L (98-107); Estimated GFR 52; Globulin 2.9 g/dL (2.4-3.5); Glucose 138 mg/dL (83-110); Potassium 4.1 mmol/L (3.5-5.1); Protein, Total 7.1 g/dL (5.8-8.1); Sodium 140 mmol/L (136-145)
[2023-10-09 11:56] LABS: Troponin I 0.036 ng/mL (< 0.028)
[2023-10-09] MEDS ORDERED: Adenosine 6 mg (2 mL) VIAL ONE ×2 (12:07→13:00)
[2023-10-09] MEDS ORDERED: dilTIAZem 25 MG/5 ML VIAL ONE (13:07)
[2023-10-09] MEDS ORDERED: dilTIAZem 125 MG/25 ML SDV ONE (13:12)
[2023-10-09] MEDS ORDERED: Acetaminophen 325 MG TAB PO PRN (14:58)
[2023-10-09] MEDS ORDERED: Amiodarone 450 MG in Dextrose 5% in Water 250 ML IVPB SCH (15:00)
[2023-10-09] MEDS ORDERED: Amiodarone 150 MG, Admixture Fee 1 EACH in Dextrose 5% in Water 100 ML IVPB SCH (15:45)
[2023-10-09] MEDS ORDERED: Amiodarone 200 MG TAB PO SCH (17:37)
[2023-10-09] MEDS ORDERED: Amiodarone 200 MG TAB ONE (17:47)
[2023-10-09 18:56] LABS: Magnesium 2.1 mg/dL (1.6-2.6)
[2023-10-09 20:22] VITALS: BMI 26.1
[2023-10-09] MEDS: Sacubitril 24MG/Valsartan 26 MG TAB PO SCH (21:55)
[2023-10-09] MEDS: Apixaban 5 MG TAB PO SCH (21:55)
[2023-10-09] MEDS: Amiodarone 200 MG TAB PO SCH (21:56)
[2023-10-09] MEDS: Carvedilol 6.25 MG TAB PO SCH (21:59)
[2023-10-10] MEDS ORDERED: Melatonin 3 MG TAB PO PRN ×2 (01:11→01:40)
[2023-10-10] MEDS: Levothyroxine Sodium 100 MCG TAB PO SCH (05:49)
[2023-10-10] MEDS ORDERED: Levothyroxine Sodium 100 MCG TAB PO SCH (06:00)
[2023-10-10 06:19] LABS: Anion Gap 14 mmol/L (10-20); BUN (Urea Nitrogen) 23 mg/dL (9.8-20.1); Calc. Creatinine Clearance 68 mL/min (70-130); Calcium 9.3 mg/dL (7.8-10.44); Carbon Dioxide 24 mmol/L (23-31); Chloride 105 mmol/L (98-107); Estimated GFR 66; Glucose 94 mg/dL (83-110); Magnesium 2.2 mg/dL (1.6-2.6); Potassium 3.6 mmol/L (3.5-5.1); Sodium 139 mmol/L (136-145)
[2023-10-10] MEDS: Potassium Chloride 10 MEQ TAB PO SCH (08:10)
[2023-10-10] MEDS: Furosemide 20 MG TAB PO SCH (08:10)
[2023-10-10] MEDS: Sacubitril 24MG/Valsartan 26 MG TAB PO SCH ×2 (08:11→20:18)
[2023-10-10] MEDS: Apixaban 5 MG TAB PO SCH ×2 (08:11→20:18)
[2023-10-10] MEDS: Carvedilol 6.25 MG TAB PO SCH ×2 (08:11→17:08)
[2023-10-10] MEDS: Amiodarone 200 MG TAB PO SCH ×3 (08:12→20:17)
[2023-10-10] MEDS ORDERED: Magnesium 2 GM/50 ML(in water) 2 GM in Premix 1 BAG IVPB SCH (10:30)
[2023-10-11 04:23] VITALS: TEMP 97.2
[2023-10-11] MEDS: Levothyroxine Sodium 100 MCG TAB PO SCH (05:00)
[2023-10-11] MEDS: Potassium Chloride 10 MEQ TAB PO SCH (09:11)
[2023-10-11] MEDS: Furosemide 20 MG TAB PO SCH (09:11)
[2023-10-11] MEDS: Sacubitril 24MG/Valsartan 26 MG TAB PO SCH (09:11)
[2023-10-11] MEDS: Carvedilol 6.25 MG TAB PO SCH (09:11)
[2023-10-11] MEDS: Amiodarone 200 MG TAB PO SCH (09:11)
[2023-10-11 09:12] VITALS: BP 131/70
[2023-10-11] MEDS: Apixaban 5 MG TAB PO SCH (09:12)
== END 2023-10-11 12:50 | disposition home or self-care (01) | DRG 308 ==
LOC: ERS 10:48 → INTOOBSV 14:08 → ERHOLD 14:08 → 2NO 20:01 → OBSVTOIN 10-11 10:39
PROVIDERS: ADMIT Internal Medicine; ATTEND Family Medicine
DX: I48.0 Paroxysmal atrial fibrillation (principal); I50.43 Acute on chronic combined systolic (congestive) and diastolic (congestive) heart failure; N17.9 Acute kidney failure, unspecified; I11.0 Hypertensive heart disease with heart failure; I42.9 Cardiomyopathy, unspecified; E03.9 Hypothyroidism, unspecified; I49.5 Sick sinus syndrome; I49.9 Cardiac arrhythmia, unspecified; Z88.0 Allergy status to penicillin; Z88.8 Allergy status to other drugs, medicaments and biological substances; Z79.890 Hormone replacement therapy; Z79.899 Other long term (current) drug therapy; Z95.0 Presence of cardiac pacemaker; Z82.49 Family history of ischemic heart disease and other diseases of the circulatory system; Z98.890 Other specified postprocedural states
CPT/HCPCS: 36415; 71045; 80048; 80053; 83735; 83880; 84443; 84484; 85025; 93005; 96374; 96375; 96376; G0378; J0153; J3475

== ENCOUNTER 2024-11-18 10:18 | Emergency (ER) | payer MEDICARE, BC ==
[2024-11-18 11:08] LABS: Bilirubin Negative (Negative); Blood, Urine Trace (Negative); Glucose, Urine (Dipstick) Negative (Negative); Ketone, Urine Negative (Negative); Leukocyte Moderate (Negative); Nitrite Negative (Negative); Protein, Urine (Dipstick) Negative (Neg-Trace); Urobilinogen 0.2 mg/dL (Less than 2); pH, Urine 7.5 (5.0-9.0)
[2024-11-18 11:20] LABS: CAUTI Indications for Culture Pelvic or flank pain; RBC/HPF 0-3 HPF (0-3); Squamous Epithelial 0-3 HPF (0-3)
[2024-11-18 11:22] LABS: Bacteria/HPF 1+ HPF (None Seen); Clarity Clear (Clear)
[2024-11-18 11:24] LABS: Urine Culture Reflex No No
[2024-11-18] MEDS ORDERED: Acetaminophen 500 MG TAB ONE ×2 (12:07→18:45)
[2024-11-18] MEDS ORDERED: Lidocaine 4% Patch ONE (12:08)
[2024-11-18 13:28] LABS: #Basophils 0.05 10x3/uL (0.0-0.2); %Basophils 0.9 % (0.0-1.0); %Eosinophils 1.4 % (0.0-10.0); %Lymphocytes 23.6 % (21.0-51.0); %Monocytes 10.1 % (0.0-10.0); %Neutrophils 63.7 % (42.0-75.0); Mean Corpuscular HGB CONC 33.3 g/dL (32.0-36.0); Mean Corpuscular Hemoglobin 31.2 pg (27.0-31.0); Mean Corpuscular Volume 93.5 fL (78.0-98.0); Mean Platelet Volume 11.2 fL (7.4-10.4); Platelet Count 181 10x3/uL (130-400); RBC Distribution Width 14.6 % (11.5-14.5); Red Blood Cell (RBC) Count 4.17 mill/uL (4.20-5.40)
[2024-11-18 13:56] LABS: ALT (SGPT) 21 U/L (Less than 34); AST (SGOT) 41 U/L (11-34); Alkaline Phosphatase 85 U/L (40-110); Anion Gap 15 mmol/L (10-20); BUN (Urea Nitrogen) 12 mg/dL (9.8-20.1); Bilirubin, Total 1.2 mg/dL (0.3-1.2); Calc. Creatinine Clearance 0 mL/min (70-130); Calcium 9.3 mg/dL (7.8-10.44); Carbon Dioxide 27 mmol/L (23-31); Chloride 101 mmol/L (98-107); Estimated GFR 65; Globulin 4.2 g/dL (2.4-3.5); Glucose 89 mg/dL (83-110); Potassium 3.9 mmol/L (3.5-5.1); Protein, Total 8.2 g/dL (5.8-8.1); Sodium 139 mmol/L (136-145)
== END 2024-11-18 20:23 | disposition home or self-care (01) ==
LOC: ERS 10:18
DX: M54.6 Pain in thoracic spine (principal); R82.71 Bacteriuria; I77.4 Celiac artery compression syndrome; I11.0 Hypertensive heart disease with heart failure; I50.9 Heart failure, unspecified; I48.91 Unspecified atrial fibrillation; E03.9 Hypothyroidism, unspecified; Z86.73 Personal history of transient ischemic attack (TIA), and cerebral infarction without residual deficits; Z79.01 Long term (current) use of anticoagulants; Z79.899 Other long term (current) drug therapy
CPT/HCPCS: 71046; 74177; 80053; 81001; 83605; 85025; 87086

== ENCOUNTER 2025-03-15 09:26 | Outpatient (CLI) | payer MEDICARE, BC | END 2025-03-15 09:27 | disposition home or self-care (01) | LOC: BICRAD 09:26 | PROVIDERS: ATTEND Neurological Surgery | DX: S22.060D Wedge compression fracture of T7-T8 vertebra, subsequent encounter for fracture with routine healing (principal); S32.009D Unspecified fracture of unspecified lumbar vertebra, subsequent encounter for fracture with routine healing | CPT/HCPCS: 72070 ==

== ENCOUNTER 2025-05-01 08:44 | Outpatient (CLI) | payer MEDICARE, BC | END 2025-05-01 08:45 | disposition home or self-care (01) | LOC: BICRAD 08:44 | PROVIDERS: ATTEND Physician Assistant | DX: S22.000A Wedge compression fracture of unspecified thoracic vertebra, initial encounter for closed fracture (principal) | CPT/HCPCS: 72070 ==

== ENCOUNTER 2025-05-03 08:26 | Outpatient (CLI) | payer MEDICARE, BC | END 2025-05-03 08:27 | disposition home or self-care (01) | LOC: BICMAMMO 08:26 | PROVIDERS: ATTEND Internal Medicine | DX: M81.0 Age-related osteoporosis without current pathological fracture (principal); M85.89 Other specified disorders of bone density and structure, multiple sites | CPT/HCPCS: 77080 ==